=== PATIENT | male | born 1960 | race Caucasian/White ===

== ENCOUNTER 2018-02-20 08:20 | Inpatient (IN) | payer BC ==
[~2018-02-20] VITALS: Ht 162.6 cm; Wt 97.1 kg
[2018-02-20] MEDS ORDERED: LISI-170 PO (08:50)
[2018-02-20] MEDS ORDERED: SODIUM CHLORIDE FLUSH 10ML SYR IVF ONE (09:00)
[2018-02-20 09:16] LABS: ALBUMIN 3.6 g/dL (3.4-5.0); ANION GAP 8 mmol/L (5-15); CALCIUM 8.5 mg/dL (8.5-10.1); CHLORIDE 100 mmol/L (98-107)
[2018-02-20 09:19] LABS: ALANINE AMINOTRANSFERASE 22 U/L (12-78); ALKALINE PHOSPHATASE 83 U/L (45-117); BILIRUBIN,TOTAL 0.7 mg/dL (0.2-1.0); CREATINE KINASE, TOTAL 272 U/L (39-308); CREATININE 0.89 mg/dL (0.7-1.3); TOTAL PROTEIN 7.4 g/dL (6.4-8.2)
[2018-02-20 09:20] LABS: INTERNATIONAL NORMALIZED RATIO 0.97 (0.93-1.1); PROTHROMBIN TIME 10.1 Seconds (9.6-11.5)
[2018-02-20 09:58] LABS: BASOPHILS # (AUTO) 0.25 x10^3/uL (0-0.1); BASOPHILS % (AUTO) 2 % (0-1); EOSINOPHILS # (AUTO) 0.24 x10^3/uL (0-0.4); EOSINOPHILS % (AUTO) 2 % (1-7); LYMPHOCYTES # (AUTO) 1.81 x10^3/uL (1-3.4); LYMPHOCYTES % (AUTO) 12 % (22-44); MD NO; MEAN CORPUSCULAR HEMOGLOBIN 33.1 pg (27.5-34.5); MEAN CORPUSCULAR HGB CONC 35.4 g/dL (33.2-36.2); MEAN CORPUSCULAR VOLUME 93.4 fL (81-97); MEAN PLATELET VOLUME 8.1 fL (7.4-10.4); MONOCYTES % (AUTO) 6 % (2-9); NEUTROPHILS # (AUTO) 12.22 x10^3/uL (1.8-6.8); NEUTROPHILS % (AUTO) 79 % (42-75); PLATELET COUNT 232 x10^3/uL (130-400); RED BLOOD COUNT 4.93 x10^6/uL (4.38-5.82); RED CELL DISTRIBUTION WIDTH 12.8 % (9.4-14.8)
[2018-02-20 10:41] LABS: MICROSCOPIC NOT IND
[2018-02-20 10:47] LABS: CULTURE INDICATED? NO
[2018-02-20] MEDS ORDERED: ONDANSETRON 2MG/ML, 2ML IVPush PRN (11:30)
[2018-02-20] MEDS ORDERED: GADOBUTROL 15 MMOL/15 ML PFS ONE (12:10)
[2018-02-20 13:18] VITALS: BP 147/89
[2018-02-20] MEDS: INSULIN LISPRO 100 UNITS/ML, PEN SQ-INSULIN SCH ×3 (14:55→20:25)
[2018-02-20] MEDS: HEPARIN 5,000 UNITS/ML, 1ML SQ SCH ×2 (16:25→23:43)
[2018-02-20 20:00] VITALS: BP 154/89
[2018-02-21 02:00] VITALS: BP 161/96
[2018-02-21 05:22] LABS: BASOPHILS # (AUTO) 0.05 x10^3/uL (0-0.1); BASOPHILS % (AUTO) 0 % (0-1); EOSINOPHILS # (AUTO) 0.36 x10^3/uL (0-0.4); EOSINOPHILS % (AUTO) 2 % (1-7); LYMPHOCYTES # (AUTO) 2.19 x10^3/uL (1-3.4); LYMPHOCYTES % (AUTO) 14 % (22-44); MD NO; MEAN CORPUSCULAR HEMOGLOBIN 33.1 pg (27.5-34.5); MEAN CORPUSCULAR HGB CONC 35.8 g/dL (33.2-36.2); MEAN CORPUSCULAR VOLUME 92.4 fL (81-97); MEAN PLATELET VOLUME 8.9 fL (7.4-10.4); MONOCYTES # (AUTO) 0.99 x10^3/uL (0.2-0.8); MONOCYTES % (AUTO) 6 % (2-9); NEUTROPHILS # (AUTO) 12.14 x10^3/uL (1.8-6.8); NEUTROPHILS % (AUTO) 77 % (42-75); PLATELET COUNT 231 x10^3/uL (130-400); RED BLOOD COUNT 4.81 x10^6/uL (4.38-5.82); RED CELL DISTRIBUTION WIDTH 13.2 % (9.4-14.8)
[2018-02-21 05:28] LABS: ANION GAP 9 mmol/L (5-15); CALCIUM 8.3 mg/dL (8.5-10.1); CHLORIDE 101 mmol/L (98-107)
[2018-02-21 05:41] LABS: THYROID STIMULATING HORMONE 0.613 mIU/L (0.358-3.740)
[2018-02-21 07:35] VITALS: BP 167/104
[2018-02-21] MEDS: HEPARIN 5,000 UNITS/ML, 1ML SQ SCH (08:31)
[2018-02-21] MEDS: LABETALOL 5MG/ML, 20ML IVPush PRN ×2 (08:31→19:51)
[2018-02-21] MEDS: INSULIN LISPRO 100 UNITS/ML, PEN SQ-INSULIN SCH ×4 (08:37→21:33)
[2018-02-21 10:21] LABS: CHOL/HDL RATIO 6.5
[2018-02-21] MEDS ORDERED: GADOBUTROL 10 MMOL/10 ML PFS ONE (12:27)
[2018-02-21 13:08] VITALS: BP 122/83
[2018-02-21] MEDS ORDERED: LIDOCAINE-MPF 1%, 2ML ONE ×3 (16:02→16:03)
[2018-02-21 17:56] LABS: GLUCOSE, CSF 97 mg/dL (40-80); TOTAL PROTEIN,CSF 81 mg/dL (15-45)
[2018-02-21] MEDS: SODIUM CHLORIDE 0.9% 1,000 ML IV SCH (18:30)
[2018-02-21] MEDS: IMMUNE GLOB (GAMUNEX) 10GM/100ML IV SCH (18:34)
[2018-02-21] MEDS: LISINOPRIL 20 MG TABLET PO SCH (21:48)
[2018-02-22] MEDS ORDERED: ALBUTEROL SULFATE 2.5 MG/3 ML ONE (03:33)
[2018-02-22 04:14] VITALS: BP 151/80
[2018-02-22] MEDS: SODIUM CHLORIDE 0.9% 1,000 ML IV SCH ×2 (05:52→20:31)
[2018-02-22 07:02] LABS: BASOPHILS # (AUTO) 0.01 x10^3/uL (0-0.1); BASOPHILS % (AUTO) 0 % (0-1); EOSINOPHILS % (AUTO) 0 % (1-7); LYMPHOCYTES # (AUTO) 0.91 x10^3/uL (1-3.4); LYMPHOCYTES % (AUTO) 6 % (22-44); MD NO; MEAN CORPUSCULAR HEMOGLOBIN 31.9 pg (27.5-34.5); MEAN CORPUSCULAR HGB CONC 34.5 g/dL (33.2-36.2); MEAN CORPUSCULAR VOLUME 92.4 fL (81-97); MEAN PLATELET VOLUME 9.2 fL (7.4-10.4); MONOCYTES # (AUTO) 0.17 x10^3/uL (0.2-0.8); MONOCYTES % (AUTO) 1 % (2-9); NEUTROPHILS # (AUTO) 14.95 x10^3/uL (1.8-6.8); NEUTROPHILS % (AUTO) 93 % (42-75); PLATELET COUNT 209 x10^3/uL (130-400)
[2018-02-22 07:24] LABS: ANION GAP 10 mmol/L (5-15); CALCIUM 8.7 mg/dL (8.5-10.1); CHLORIDE 103 mmol/L (98-107); CREATININE 0.74 mg/dL (0.7-1.3)
[2018-02-22] MEDS: INSULIN LISPRO 100 UNITS/ML, PEN SQ-INSULIN SCH ×4 (08:13→23:51)
[2018-02-22] MEDS: LISINOPRIL 20 MG TABLET PO SCH (08:13)
[2018-02-22] MEDS: ENALAPRILAT 1.25 MG/ML, 2ML IVPush PRN (09:43)
[2018-02-22] MEDS ORDERED: LISINOPRIL 20 MG TABLET PO ONE (10:30)
[2018-02-22] MEDS ORDERED: hydrOXyzine 10 MG/5 ML ORAL SOL PO PRN (10:30)
[2018-02-22] MEDS ORDERED: LISINOPRIL 20 MG TABLET ONE (10:32)
[2018-02-22] MEDS ORDERED: INSULIN GLARGINE 100 UNITS/ML, PEN ONE (10:33)
[2018-02-22] MEDS: INSULIN GLARGINE 100 UNITS/ML, PEN SQ-INSULIN SCH (10:35)
[2018-02-22] MEDS ORDERED: ROCURONIUM 10 MG/ML,10ML ONE (12:00)
[2018-02-22] MEDS ORDERED: PROPOFOL 10 MG/ML, 100ML IV ONE (12:00)
[2018-02-22] MEDS ORDERED: MIDAZOLAM 1 MG/ML, 5ML ONE (12:00)
[2018-02-22] MEDS ORDERED: SUCCINYLCHOLINE 20 MG/ML, 10ML ONE (12:00)
[2018-02-22] MEDS ORDERED: ETOMIDATE 40 MG/20 ML ONE (12:00)
[2018-02-22] MEDS ORDERED: PHARMACY MAY ADJ FOR RENAL FX MC SCH (12:30)
[2018-02-22] MEDS ORDERED: morphine SULFATE 10 MG/ML, 1ML ONE (12:33)
[2018-02-22] MEDS ORDERED: morphine SULFATE 10 MG/ML, 1ML IVPush ONE (13:00)
[2018-02-22] MEDS: FAMOTIDINE 20 MG/2 ML IV SCH ×2 (13:33→23:51)
[2018-02-22] MEDS: CYANOCOBALAMIN 1,000 MCG TABLET PO SCH (13:37)
[2018-02-22] MEDS: PROPOFOL 100 ML IV PRN ×3 (14:07→23:51)
[2018-02-22] MEDS: HYDROcodone/APAP 5/325 TABLET PO PRN ×2 (17:32→21:02)
[2018-02-22] MEDS: IMMUNE GLOB (GAMUNEX) 10GM/100ML IV SCH (18:41)
[2018-02-22 19:23] VITALS: BP 92/60
[2018-02-23] MEDS: HYDROcodone/APAP 5/325 TABLET PO PRN ×3 (03:20→22:16)
[2018-02-23 04:55] LABS: BASOPHILS # (AUTO) 0.04 x10^3/uL (0-0.1); BASOPHILS % (AUTO) 0 % (0-1); EOSINOPHILS # (AUTO) 0.02 x10^3/uL (0-0.4); EOSINOPHILS % (AUTO) 0 % (1-7); LYMPHOCYTES # (AUTO) 1.55 x10^3/uL (1-3.4); LYMPHOCYTES % (AUTO) 8 % (22-44); MD NO; MEAN CORPUSCULAR HEMOGLOBIN 32.8 pg (27.5-34.5); MEAN CORPUSCULAR HGB CONC 35.1 g/dL (33.2-36.2); MEAN CORPUSCULAR VOLUME 93.4 fL (81-97); MEAN PLATELET VOLUME 8.3 fL (7.4-10.4); MONOCYTES # (AUTO) 1.28 x10^3/uL (0.2-0.8); MONOCYTES % (AUTO) 6 % (2-9); NEUTROPHILS # (AUTO) 16.99 x10^3/uL (1.8-6.8); NEUTROPHILS % (AUTO) 86 % (42-75); PLATELET COUNT 211 x10^3/uL (130-400); RED BLOOD COUNT 4.21 x10^6/uL (4.38-5.82); RED CELL DISTRIBUTION WIDTH 13.6 % (9.4-14.8)
[2018-02-23] MEDS: SODIUM CHLORIDE 0.9% 1,000 ML IV SCH ×2 (05:05→17:39)
[2018-02-23 05:07] LABS: ALANINE AMINOTRANSFERASE 16 U/L (12-78); ALBUMIN 2.7 g/dL (3.4-5.0); ANION GAP 6 mmol/L (5-15); CHLORIDE 105 mmol/L (98-107); CREATININE 0.93 mg/dL (0.7-1.3)
[2018-02-23 05:09] LABS: ALKALINE PHOSPHATASE 53 U/L (45-117); BILIRUBIN,TOTAL 0.6 mg/dL (0.2-1.0); TOTAL PROTEIN 7.7 g/dL (6.4-8.2)
[2018-02-23] MEDS: INSULIN LISPRO 100 UNITS/ML, PEN SQ-INSULIN SCH ×3 (05:39→17:39)
[2018-02-23] MEDS ORDERED: LISINOPRIL 20 MG TABLET PO SCH (09:00)
[2018-02-23] MEDS: PROPOFOL 100 ML IV PRN ×2 (12:19→23:10)
[2018-02-23] MEDS ORDERED: FENTANYL PF 100 MCG/2ML ONE (12:21)
[2018-02-23] MEDS: FENTANYL PF 100 MCG/2ML IVPush PRN ×4 (12:23→22:16)
[2018-02-23] MEDS: INSULIN GLARGINE 100 UNITS/ML, PEN SQ-INSULIN SCH (12:27)
[2018-02-23] MEDS: FAMOTIDINE 20 MG/2 ML IV SCH (12:39)
[2018-02-23] MEDS: CYANOCOBALAMIN 1,000 MCG TABLET PO SCH (16:29)
[2018-02-23] MEDS: IMMUNE GLOB (GAMUNEX) 10GM/100ML IV SCH (17:30)
[2018-02-23] MEDS ORDERED: ACETAMINOPHEN 650 MG/20.3 ML UDC ONE (18:39)
[2018-02-23] MEDS: ACETAMINOPHEN 325 MG TABLET PO PRN (18:43)
[2018-02-23] MEDS: LIDODERM 5% PATCH TD SCH (18:43)
[2018-02-24] MEDS: FAMOTIDINE 20 MG/2 ML IV SCH ×2 (00:31→12:10)
[2018-02-24] MEDS: INSULIN LISPRO 100 UNITS/ML, PEN SQ-INSULIN SCH ×5 (00:33→22:55)
[2018-02-24] MEDS: HYDROcodone/APAP 5/325 TABLET PO PRN ×4 (03:08→19:17)
[2018-02-24] MEDS: LABETALOL 5MG/ML, 20ML IVPush PRN ×2 (03:08→16:17)
[2018-02-24] MEDS: FENTANYL PF 100 MCG/2ML IVPush PRN ×4 (03:08→23:30)
[2018-02-24 04:42] LABS: ALANINE AMINOTRANSFERASE 15 U/L (12-78); ALBUMIN 2.4 g/dL (3.4-5.0); ANION GAP 7 mmol/L (5-15); CALCIUM 7.7 mg/dL (8.5-10.1); CHLORIDE 104 mmol/L (98-107); CREATININE 0.96 mg/dL (0.7-1.3)
[2018-02-24 04:44] LABS: ALKALINE PHOSPHATASE 51 U/L (45-117); BILIRUBIN,TOTAL 0.7 mg/dL (0.2-1.0); TOTAL PROTEIN 7.7 g/dL (6.4-8.2)
[2018-02-24 04:57] LABS: MEAN CORPUSCULAR HEMOGLOBIN 32.1 pg (27.5-34.5); MEAN CORPUSCULAR HGB CONC 34.7 g/dL (33.2-36.2); MEAN CORPUSCULAR VOLUME 92.5 fL (81-97); MEAN PLATELET VOLUME 8.8 fL (7.4-10.4); PLATELET COUNT 197 x10^3/uL (130-400); RED BLOOD COUNT 3.91 x10^6/uL (4.38-5.82); RED CELL DISTRIBUTION WIDTH 13.4 % (9.4-14.8)
[2018-02-24 05:40] LABS: MD YES
[2018-02-24 05:45] LABS: BAND#(MANUAL) 1.18 x10^3/uL; BANDS%(MANUAL) 4 % (0-7); LYMPH#(MANUAL) 1.77 x10^3/uL (1-3.4); LYMPHS% (MANUAL) 6 % (22-44); MONOS#(MANUAL) 1.18 x10^3/uL (0.3-2.7); MONOS% (MANUAL) 4 % (2-9); SEG#(MANUAL) 25.37 x10^3/uL (1.8-6.8); SEGS% (MANUAL) 86 % (42-75)
[2018-02-24 05:46] LABS: <RBC MORPHOLOGY> NORMAL
[2018-02-24 05:47] LABS: <PLATELET ESTIMATE> ADEQUATE; <PLT MORPHOLOGY> NORMAL PLT MORPH
[2018-02-24] MEDS: SODIUM CHLORIDE 0.9% 1,000 ML IV SCH ×2 (06:17→19:27)
[2018-02-24] MEDS: LISINOPRIL 20 MG TABLET PO SCH (07:54)
[2018-02-24] MEDS: ACETAMINOPHEN 325 MG TABLET PO PRN ×2 (07:54→17:57)
[2018-02-24] MEDS ORDERED: VANCOMYCIN PER PHARMACY MC PRN (08:00)
[2018-02-24] MEDS: PIPERACILLIN/TAZO/PMX 3.375GM 50 ML IV SCH ×3 (08:23→19:33)
[2018-02-24] MEDS ORDERED: PHARMACOKINETIC CONSULTATION MC ONE (08:30)
[2018-02-24] MEDS ORDERED: PHARMACOKINETIC MONITORING MC PRN (08:30)
[2018-02-24] MEDS: VANCOMYCIN 2,000 MG in SODIUM CHLORIDE 0.9% 500 ML IV SCH (09:12)
[2018-02-24] MEDS: PROPOFOL 100 ML IV PRN ×2 (09:18→17:16)
[2018-02-24 09:33] LABS: CULTURE INDICATED? YES; MICROSCOPIC INDICATED
[2018-02-24] MEDS: INSULIN GLARGINE 100 UNITS/ML, PEN SQ-INSULIN SCH (12:09)
[2018-02-24] MEDS: CYANOCOBALAMIN 1,000 MCG TABLET PO SCH (12:10)
[2018-02-24] MEDS: LIDODERM 5% PATCH TD SCH (13:40)
[2018-02-24] MEDS: IMMUNE GLOB (GAMUNEX) 10GM/100ML IV SCH (17:09)
[2018-02-24] MEDS: ENALAPRILAT 1.25 MG/ML, 2ML IVPush PRN (18:42)
[2018-02-24] MEDS: ALBUTEROL SULFATE 2.5 MG/3 ML NPPB SCH (22:44)
[2018-02-25] MEDS: PROPOFOL 100 ML IV PRN ×3 (00:37→20:07)
[2018-02-25] MEDS: FAMOTIDINE 20 MG/2 ML IV SCH (00:37)
[2018-02-25] MEDS: PIPERACILLIN/TAZO/PMX 3.375GM 50 ML IV SCH ×4 (01:30→19:48)
[2018-02-25] MEDS: VANCOMYCIN 2,000 MG in SODIUM CHLORIDE 0.9% 500 ML IV SCH ×2 (02:11→20:29)
[2018-02-25] MEDS: ALBUTEROL SULFATE 2.5 MG/3 ML NPPB SCH ×6 (03:00→22:20)
[2018-02-25] MEDS: HYDROcodone/APAP 5/325 TABLET PO PRN ×2 (03:54→08:06)
[2018-02-25 04:00] VITALS: BP 146/75
[2018-02-25] MEDS: INSULIN LISPRO 100 UNITS/ML, PEN SQ-INSULIN SCH ×4 (05:18→23:30)
[2018-02-25 05:43] LABS: CHLORIDE 103 mmol/L (98-107)
[2018-02-25 05:56] LABS: ANION GAP 7 mmol/L (5-15); CALCIUM 7.8 mg/dL (8.5-10.1)
[2018-02-25 06:03] LABS: MEAN CORPUSCULAR HGB CONC 35.2 g/dL (33.2-36.2); MEAN CORPUSCULAR VOLUME 93.7 fL (81-97); MEAN PLATELET VOLUME 8.6 fL (7.4-10.4); PLATELET COUNT 133 x10^3/uL (130-400); RED BLOOD COUNT 3.37 x10^6/uL (4.38-5.82); RED CELL DISTRIBUTION WIDTH 13.2 % (9.4-14.8)
[2018-02-25 06:18] LABS: MD YES
[2018-02-25 06:20] LABS: <PLATELET ESTIMATE> ADEQUATE; <PLT MORPHOLOGY> NORMAL PLT MORPH; BAND#(MANUAL) 0.68 x10^3/uL; BANDS%(MANUAL) 3 % (0-7); EOS#(MANUAL) 0.23 x10^3/uL (0.0-0.4); EOS% (MANUAL) 1 % (1-7); LYMPH#(MANUAL) 1.35 x10^3/uL (1-3.4); LYMPHS% (MANUAL) 6 % (22-44); METAMYELOCYTES# (MANUAL) 0.23 x10^3/uL (0-0); METAMYELOCYTES% (MANUAL) 1 % (0-1); MONOS#(MANUAL) 2.03 x10^3/uL (0.3-2.7); MONOS% (MANUAL) 9 % (2-9); POLYCHROMASIA 1+; SEGS% (MANUAL) 80 % (42-75)
[2018-02-25] MEDS: LISINOPRIL 20 MG TABLET PO SCH (08:06)
[2018-02-25] MEDS: SODIUM CHLORIDE 0.9% 1,000 ML IV SCH ×2 (09:00→12:55)
[2018-02-25] MEDS: ENOXAPARIN 40 MG/0.4 ML SQ SCH (09:29)
[2018-02-25] MEDS ORDERED: INSULIN GLARGINE 100 UNITS/ML, PEN SQ-INSULIN SCH (10:30)
[2018-02-25] MEDS: CYANOCOBALAMIN 1,000 MCG TABLET PO SCH (13:07)
[2018-02-25] MEDS: ACETAMINOPHEN 325 MG TABLET PO PRN ×2 (14:07→20:24)
[2018-02-25] MEDS: IMMUNE GLOB (GAMUNEX) 10GM/100ML IV SCH (18:40)
[2018-02-25] MEDS: FAMOTIDINE 20 MG TABLET PO SCH (20:52)
[2018-02-25] MEDS: FENTANYL PF 100 MCG/2ML IVPush PRN (21:08)
[2018-02-26] MEDS: HYDROcodone/APAP 5/325 TABLET PO PRN ×3 (01:35→20:10)
[2018-02-26] MEDS: PIPERACILLIN/TAZO/PMX 3.375GM 50 ML IV SCH ×2 (02:02→08:00)
[2018-02-26] MEDS: PROPOFOL 100 ML IV PRN ×4 (02:48→18:54)
[2018-02-26] MEDS: ALBUTEROL SULFATE 2.5 MG/3 ML NPPB SCH ×6 (03:00→22:43)
[2018-02-26 04:05] VITALS: BP 138/82
[2018-02-26 04:29] LABS: MEAN CORPUSCULAR HEMOGLOBIN 33.1 pg (27.5-34.5); MEAN CORPUSCULAR HGB CONC 35.3 g/dL (33.2-36.2); MEAN CORPUSCULAR VOLUME 93.8 fL (81-97); MEAN PLATELET VOLUME 8.9 fL (7.4-10.4); PLATELET COUNT 169 x10^3/uL (130-400); RED BLOOD COUNT 3.23 x10^6/uL (4.38-5.82); RED CELL DISTRIBUTION WIDTH 13.2 % (9.4-14.8)
[2018-02-26 04:32] LABS: ANION GAP 4 mmol/L (5-15); CALCIUM 7.9 mg/dL (8.5-10.1); CHLORIDE 101 mmol/L (98-107); CREATININE 0.79 mg/dL (0.7-1.3)
[2018-02-26 04:51] LABS: MD YES
[2018-02-26 04:53] LABS: <PLATELET ESTIMATE> ADEQUATE; <PLT MORPHOLOGY> NORMAL PLT MORPH; <RBC MORPHOLOGY> NORMAL; BAND#(MANUAL) 0.37 x10^3/uL; BANDS%(MANUAL) 2 % (0-7); LYMPH#(MANUAL) 2.62 x10^3/uL (1-3.4); LYMPHS% (MANUAL) 14 % (22-44); MONOS#(MANUAL) 0.94 x10^3/uL (0.3-2.7); MONOS% (MANUAL) 5 % (2-9); MYELOCYTES# (MANUAL) 0.19 x10^3/uL (0-0); MYELOCYTES% (MANUAL) 1 % (0-0); SEG#(MANUAL) 14.59 x10^3/uL (1.8-6.8); SEGS% (MANUAL) 78 % (42-75)
[2018-02-26] MEDS: INSULIN LISPRO 100 UNITS/ML, PEN SQ-INSULIN SCH ×4 (05:08→22:58)
[2018-02-26] MEDS ORDERED: INSULIN LISPRO 100 UNITS/ML, PEN SQ-INSULIN SCH (07:30)
[2018-02-26] MEDS: CEFTRIAXONE 2 GM in SODIUM CHLORIDE 0.9% 50 ML IVPB SCH (09:15)
[2018-02-26] MEDS: ENOXAPARIN 40 MG/0.4 ML SQ SCH (09:15)
[2018-02-26] MEDS: FAMOTIDINE 20 MG TABLET PO SCH ×2 (09:15→20:10)
[2018-02-26] MEDS: LISINOPRIL 20 MG TABLET PO SCH (09:15)
[2018-02-26] MEDS: LIDODERM 5% PATCH TD SCH (09:17)
[2018-02-26] MEDS ORDERED: IMMUNE GLOB (GAMUNEX) 10GM/100ML IV SCH (10:30)
[2018-02-26] MEDS ORDERED: INSULIN GLARGINE 100 UNITS/ML, PEN SQ-INSULIN SCH (10:30)
[2018-02-26] MEDS: CYANOCOBALAMIN 1,000 MCG TABLET PO SCH (11:45)
[2018-02-26] MEDS: VANCOMYCIN 2,000 MG in SODIUM CHLORIDE 0.9% 500 ML IV SCH (14:57)
[2018-02-26] MEDS: SODIUM CHLORIDE 0.9% 1,000 ML IV SCH (16:06)
[2018-02-26] MEDS: IMMUNE GLOB (GAMUNEX) 10GM/100ML IV SCH (18:21)
[2018-02-27] MEDS: PROPOFOL 100 ML IV PRN ×5 (00:15→23:43)
[2018-02-27] MEDS: ALBUTEROL SULFATE 2.5 MG/3 ML NPPB SCH ×6 (03:00→21:58)
[2018-02-27] MEDS: VANCOMYCIN 2,000 MG in SODIUM CHLORIDE 0.9% 500 ML IV SCH ×2 (03:09→14:49)
[2018-02-27 04:13] VITALS: BP 121/73
[2018-02-27 04:24] LABS: BASOPHILS # (AUTO) 0.03 x10^3/uL (0-0.1); BASOPHILS % (AUTO) 0 % (0-1); EOSINOPHILS % (AUTO) 5 % (1-7); LYMPHOCYTES # (AUTO) 1.73 x10^3/uL (1-3.4); LYMPHOCYTES % (AUTO) 12 % (22-44); MD NO; MEAN CORPUSCULAR HEMOGLOBIN 32.1 pg (27.5-34.5); MEAN CORPUSCULAR HGB CONC 34.9 g/dL (33.2-36.2); MEAN CORPUSCULAR VOLUME 91.8 fL (81-97); MEAN PLATELET VOLUME 8.5 fL (7.4-10.4); MONOCYTES # (AUTO) 1.39 x10^3/uL (0.2-0.8); MONOCYTES % (AUTO) 10 % (2-9); NEUTROPHILS # (AUTO) 10.12 x10^3/uL (1.8-6.8); NEUTROPHILS % (AUTO) 72 % (42-75); PLATELET COUNT 222 x10^3/uL (130-400); RED BLOOD COUNT 3.22 x10^6/uL (4.38-5.82); RED CELL DISTRIBUTION WIDTH 13.7 % (9.4-14.8)
[2018-02-27 04:30] LABS: ANION GAP 6 mmol/L (5-15); CALCIUM 7.6 mg/dL (8.5-10.1); CHLORIDE 99 mmol/L (98-107); CREATININE 0.74 mg/dL (0.7-1.3)
[2018-02-27] MEDS: INSULIN LISPRO 100 UNITS/ML, PEN SQ-INSULIN SCH ×4 (05:02→23:04)
[2018-02-27] MEDS: HYDROcodone/APAP 5/325 TABLET PO PRN (06:36)
[2018-02-27] MEDS: ENOXAPARIN 40 MG/0.4 ML SQ SCH (08:47)
[2018-02-27] MEDS: LIDODERM 5% PATCH TD SCH (08:48)
[2018-02-27] MEDS: CEFTRIAXONE 2 GM in SODIUM CHLORIDE 0.9% 50 ML IVPB SCH (08:48)
[2018-02-27] MEDS: FAMOTIDINE 20 MG TABLET PO SCH ×2 (08:48→20:39)
[2018-02-27] MEDS: LISINOPRIL 20 MG TABLET PO SCH (08:48)
[2018-02-27] MEDS ORDERED: INSULIN GLARGINE 100 UNITS/ML, PEN SQ-INSULIN SCH (10:30)
[2018-02-27] MEDS: CYANOCOBALAMIN 1,000 MCG TABLET PO SCH (12:08)
[2018-02-27] MEDS: SODIUM CHLORIDE 0.9% 1,000 ML IV SCH (12:09)
[2018-02-27] MEDS: IMMUNE GLOB (GAMUNEX) 10GM/100ML IV SCH (19:35)
[2018-02-27] MEDS: ACETAMINOPHEN 325 MG TABLET PO PRN (22:59)
[2018-02-28] MEDS: ALBUTEROL SULFATE 2.5 MG/3 ML NPPB SCH ×6 (02:12→22:29)
[2018-02-28] MEDS: VANCOMYCIN 2,000 MG in SODIUM CHLORIDE 0.9% 500 ML IV SCH ×2 (02:54→14:50)
[2018-02-28] MEDS: HYDROcodone/APAP 5/325 TABLET PO PRN ×2 (03:57→21:19)
[2018-02-28] MEDS: LACTULOSE 20 GM/30 ML UDC PO PRN (03:57)
[2018-02-28 04:12] VITALS: BP 143/78
[2018-02-28] MEDS: PROPOFOL 100 ML IV PRN ×4 (04:38→20:07)
[2018-02-28 04:47] LABS: MEAN CORPUSCULAR HEMOGLOBIN 33.2 pg (27.5-34.5); MEAN CORPUSCULAR HGB CONC 35.7 g/dL (33.2-36.2); MEAN CORPUSCULAR VOLUME 93.1 fL (81-97); MEAN PLATELET VOLUME 8.3 fL (7.4-10.4); PLATELET COUNT 209 x10^3/uL (130-400); RED BLOOD COUNT 3.17 x10^6/uL (4.38-5.82); RED CELL DISTRIBUTION WIDTH 13.6 % (9.4-14.8)
[2018-02-28 04:48] LABS: CHLORIDE 101 mmol/L (98-107)
[2018-02-28 04:54] LABS: ANION GAP 7 mmol/L (5-15); CALCIUM 7.7 mg/dL (8.5-10.1); CREATININE 0.77 mg/dL (0.7-1.3); TRIGLYCERIDES 130 mg/dL (50-200)
[2018-02-28 05:09] LABS: BASOPHILS # (AUTO) 0.01 x10^3/uL (0-0.1); BASOPHILS % (AUTO) 0 % (0-1); EOSINOPHILS # (AUTO) 0.82 x10^3/uL (0-0.4); EOSINOPHILS % (AUTO) 6 % (1-7); LYMPHOCYTES # (AUTO) 1.22 x10^3/uL (1-3.4); LYMPHOCYTES % (AUTO) 9 % (22-44); MD SCAN; MONOCYTES # (AUTO) 1.57 x10^3/uL (0.2-0.8); MONOCYTES % (AUTO) 11 % (2-9); NEUTROPHILS # (AUTO) 10.13 x10^3/uL (1.8-6.8); NEUTROPHILS % (AUTO) 74 % (42-75)
[2018-02-28] MEDS: INSULIN LISPRO 100 UNITS/ML, PEN SQ-INSULIN SCH ×4 (05:19→23:10)
[2018-02-28] MEDS: SODIUM CHLORIDE 0.9% 1,000 ML IV SCH (05:22)
[2018-02-28] MEDS ORDERED: VANCOMYCIN PER PHARMACY MC PRN (08:30)
[2018-02-28] MEDS: FAMOTIDINE 20 MG TABLET PO SCH ×2 (08:42→21:12)
[2018-02-28] MEDS: LISINOPRIL 20 MG TABLET PO SCH (08:42)
[2018-02-28] MEDS: ENOXAPARIN 40 MG/0.4 ML SQ SCH (08:43)
[2018-02-28] MEDS: CEFTRIAXONE 2 GM in SODIUM CHLORIDE 0.9% 50 ML IVPB SCH (08:43)
[2018-02-28] MEDS: LIDODERM 5% PATCH TD SCH (08:45)
[2018-02-28] MEDS ORDERED: INSULIN GLARGINE 100 UNITS/ML, PEN SQ-INSULIN SCH (10:30)
[2018-02-28] MEDS: CYANOCOBALAMIN 1,000 MCG TABLET PO SCH (13:00)
[2018-02-28] MEDS: ACETAMINOPHEN 325 MG TABLET PO PRN (18:43)
[2018-02-28] MEDS: IMMUNE GLOB (GAMUNEX) 10GM/100ML IV SCH (18:43)
[2018-03-01] MEDS: PROPOFOL 100 ML IV PRN ×6 (00:16→22:25)
[2018-03-01] MEDS: ALBUTEROL SULFATE 2.5 MG/3 ML NPPB SCH ×6 (02:59→22:56)
[2018-03-01] MEDS: SODIUM CHLORIDE 0.9% 1,000 ML IV SCH (03:04)
[2018-03-01] MEDS: VANCOMYCIN 2,000 MG in SODIUM CHLORIDE 0.9% 500 ML IV SCH ×2 (03:04→15:23)
[2018-03-01 04:30] VITALS: BP 162/87
[2018-03-01 04:39] LABS: MEAN CORPUSCULAR HEMOGLOBIN 33.1 pg (27.5-34.5); MEAN CORPUSCULAR HGB CONC 35.7 g/dL (33.2-36.2); MEAN CORPUSCULAR VOLUME 92.7 fL (81-97); MEAN PLATELET VOLUME 8.6 fL (7.4-10.4); PLATELET COUNT 252 x10^3/uL (130-400); RED BLOOD COUNT 3.23 x10^6/uL (4.38-5.82); RED CELL DISTRIBUTION WIDTH 13.7 % (9.4-14.8)
[2018-03-01 04:50] LABS: ANION GAP 7 mmol/L (5-15); CHLORIDE 99 mmol/L (98-107)
[2018-03-01 04:51] LABS: CREATININE 0.74 mg/dL (0.7-1.3)
[2018-03-01] MEDS: INSULIN LISPRO 100 UNITS/ML, PEN SQ-INSULIN SCH ×4 (04:58→22:25)
[2018-03-01] MEDS: ENALAPRILAT 1.25 MG/ML, 2ML IVPush PRN (05:08)
[2018-03-01 05:17] LABS: MD YES
[2018-03-01 05:18] LABS: BAND#(MANUAL) 0.94 x10^3/uL; BANDS%(MANUAL) 6 % (0-7); EOS#(MANUAL) 0.47 x10^3/uL (0.0-0.4); EOS% (MANUAL) 3 % (1-7); LYMPH#(MANUAL) 1.87 x10^3/uL (1-3.4); LYMPHS% (MANUAL) 12 % (22-44); METAMYELOCYTES# (MANUAL) 0.47 x10^3/uL (0-0); METAMYELOCYTES% (MANUAL) 3 % (0-1); MONOS#(MANUAL) 0.78 x10^3/uL (0.3-2.7); MONOS% (MANUAL) 5 % (2-9); MYELOCYTES# (MANUAL) 0.31 x10^3/uL (0-0); MYELOCYTES% (MANUAL) 2 % (0-0); SEG#(MANUAL) 10.76 x10^3/uL (1.8-6.8); SEGS% (MANUAL) 69 % (42-75)
[2018-03-01 05:19] LABS: <PLATELET ESTIMATE> ADEQUATE; <PLT MORPHOLOGY> NORMAL PLT MORPH; ANISOCYTOSIS 1+; POLYCHROMASIA 1+
[2018-03-01] MEDS: LISINOPRIL 20 MG TABLET PO SCH (08:09)
[2018-03-01] MEDS: LIDODERM 5% PATCH TD SCH (08:09)
[2018-03-01] MEDS: ENOXAPARIN 40 MG/0.4 ML SQ SCH (08:09)
[2018-03-01] MEDS: FAMOTIDINE 20 MG TABLET PO SCH ×2 (08:09→20:16)
[2018-03-01] MEDS: CEFTRIAXONE 2 GM in SODIUM CHLORIDE 0.9% 50 ML IVPB SCH (08:09)
[2018-03-01] MEDS: HYDROcodone/APAP 5/325 TABLET PO PRN ×2 (08:10→20:16)
[2018-03-01] MEDS ORDERED: INSULIN GLARGINE 100 UNITS/ML, PEN SQ-INSULIN SCH (10:30)
[2018-03-01] MEDS: LACTULOSE 20 GM/30 ML UDC PO PRN (17:59)
[2018-03-01] MEDS: CYANOCOBALAMIN 1,000 MCG TABLET PO SCH (20:10)
[2018-03-02] MEDS: PROPOFOL 100 ML IV PRN ×7 (01:29→23:43)
[2018-03-02 02:40] LABS: MEAN CORPUSCULAR HEMOGLOBIN 33.4 pg (27.5-34.5); MEAN CORPUSCULAR VOLUME 92.8 fL (81-97); MEAN PLATELET VOLUME 8.3 fL (7.4-10.4); PLATELET COUNT 279 x10^3/uL (130-400); RED BLOOD COUNT 3.42 x10^6/uL (4.38-5.82); RED CELL DISTRIBUTION WIDTH 13.8 % (9.4-14.8)
[2018-03-02 02:49] LABS: ANION GAP 7 mmol/L (5-15); CALCIUM 7.9 mg/dL (8.5-10.1); CHLORIDE 99 mmol/L (98-107)
[2018-03-02 03:21] LABS: MD YES
[2018-03-02] MEDS: VANCOMYCIN 2,000 MG in SODIUM CHLORIDE 0.9% 500 ML IV SCH ×2 (03:22→15:25)
[2018-03-02] MEDS: ALBUTEROL SULFATE 2.5 MG/3 ML NPPB SCH ×6 (03:25→22:30)
[2018-03-02 03:33] LABS: BAND#(MANUAL) 0.81 x10^3/uL; BANDS%(MANUAL) 5 % (0-7); EOS#(MANUAL) 0.81 x10^3/uL (0.0-0.4); EOS% (MANUAL) 5 % (1-7); LYMPH#(MANUAL) 1.46 x10^3/uL (1-3.4); LYMPHS% (MANUAL) 9 % (22-44); METAMYELOCYTES# (MANUAL) 0.65 x10^3/uL (0-0); METAMYELOCYTES% (MANUAL) 4 % (0-1); MONOS#(MANUAL) 0.16 x10^3/uL (0.3-2.7); MONOS% (MANUAL) 1 % (2-9); MYELOCYTES# (MANUAL) 0.16 x10^3/uL (0-0); MYELOCYTES% (MANUAL) 1 % (0-0); REACTIVE LYMPHS # (MANUAL) 0.16 x10^3/uL (0-0); REACTIVE LYMPHS % (MANUAL) 1 % (0-0); SEG#(MANUAL) 11.99 x10^3/uL (1.8-6.8); SEGS% (MANUAL) 74 % (42-75)
[2018-03-02 03:34] LABS: <PLATELET ESTIMATE> ADEQUATE; ANISOCYTOSIS 1+; POLYCHROMASIA 1+
[2018-03-02 03:35] LABS: LARGE PLATELETS 1+
[2018-03-02] MEDS: INSULIN LISPRO 100 UNITS/ML, PEN SQ-INSULIN SCH ×4 (04:29→23:03)
[2018-03-02 04:30] VITALS: BP 174/90
[2018-03-02] MEDS: LACTULOSE 20 GM/30 ML UDC PO PRN (04:42)
[2018-03-02] MEDS: ENALAPRILAT 1.25 MG/ML, 2ML IVPush PRN (04:42)
[2018-03-02] MEDS: HYDROcodone/APAP 5/325 TABLET PO PRN (04:42)
[2018-03-02] MEDS ORDERED: DOCUSATE 100 MG CAPSULE PO SCH (09:00)
[2018-03-02] MEDS: LIDODERM 5% PATCH TD SCH (09:00)
[2018-03-02] MEDS: ENOXAPARIN 40 MG/0.4 ML SQ SCH (09:20)
[2018-03-02] MEDS: FAMOTIDINE 20 MG TABLET PO SCH ×2 (09:20→20:42)
[2018-03-02] MEDS: CYANOCOBALAMIN 1,000 MCG TABLET PO SCH (09:21)
[2018-03-02] MEDS: LISINOPRIL 20 MG TABLET PO SCH (09:21)
[2018-03-02] MEDS: CEFTRIAXONE 2 GM in SODIUM CHLORIDE 0.9% 50 ML IVPB SCH (09:27)
[2018-03-02] MEDS: INSULIN GLARGINE 100 UNITS/ML, PEN SQ-INSULIN SCH (10:37)
[2018-03-02] MEDS ORDERED: DOCUSATE 50 MG/5 ML, 10ML UDC PO PRN (20:30)
[2018-03-02] MEDS: DOCUSATE 50 MG/5 ML, 10ML UDC PO SCH (21:00)
[2018-03-02] MEDS ORDERED: CEFTRIAXONE 2 GM in SODIUM CHLORIDE 0.9% 100 ML IVPB SCH (21:30)
[2018-03-03] MEDS: PROPOFOL 100 ML IV PRN ×7 (02:37→23:30)
[2018-03-03] MEDS: ALBUTEROL SULFATE 2.5 MG/3 ML NPPB SCH ×6 (02:40→22:52)
[2018-03-03] MEDS: VANCOMYCIN 2,000 MG in SODIUM CHLORIDE 0.9% 500 ML IV SCH ×2 (03:10→15:11)
[2018-03-03 04:00] VITALS: BP 148/76
[2018-03-03 04:27] LABS: BASOPHILS # (AUTO) 0.05 x10^3/uL (0-0.1); BASOPHILS % (AUTO) 0 % (0-1); EOSINOPHILS # (AUTO) 0.64 x10^3/uL (0-0.4); EOSINOPHILS % (AUTO) 4 % (1-7); LYMPHOCYTES # (AUTO) 1.72 x10^3/uL (1-3.4); LYMPHOCYTES % (AUTO) 10 % (22-44); MD NO; MEAN CORPUSCULAR HEMOGLOBIN 33.1 pg (27.5-34.5); MEAN CORPUSCULAR HGB CONC 35.7 g/dL (33.2-36.2); MEAN CORPUSCULAR VOLUME 92.7 fL (81-97); MEAN PLATELET VOLUME 8.3 fL (7.4-10.4); MONOCYTES # (AUTO) 1.25 x10^3/uL (0.2-0.8); MONOCYTES % (AUTO) 7 % (2-9); NEUTROPHILS # (AUTO) 13.43 x10^3/uL (1.8-6.8); NEUTROPHILS % (AUTO) 79 % (42-75); PLATELET COUNT 286 x10^3/uL (130-400); RED CELL DISTRIBUTION WIDTH 13.9 % (9.4-14.8)
[2018-03-03 04:29] LABS: ANION GAP 7 mmol/L (5-15); CALCIUM 7.9 mg/dL (8.5-10.1); CHLORIDE 102 mmol/L (98-107)
[2018-03-03 04:30] LABS: CREATININE 0.71 mg/dL (0.7-1.3); TRIGLYCERIDES 114 mg/dL (50-200)
[2018-03-03] MEDS: INSULIN LISPRO 100 UNITS/ML, PEN SQ-INSULIN SCH ×4 (05:01→23:12)
[2018-03-03] MEDS ORDERED: CEFTRIAXONE 2 GM in SODIUM CHLORIDE 0.9% 50 ML IVPB SCH (09:00)
[2018-03-03] MEDS: LIDODERM 5% PATCH TD SCH (09:00)
[2018-03-03] MEDS: DOCUSATE 50 MG/5 ML, 10ML UDC PO SCH ×2 (10:00→20:28)
[2018-03-03] MEDS: LISINOPRIL 20 MG TABLET PO SCH (10:00)
[2018-03-03] MEDS: FAMOTIDINE 20 MG TABLET PO SCH ×2 (10:00→20:28)
[2018-03-03] MEDS: ENOXAPARIN 40 MG/0.4 ML SQ SCH (10:01)
[2018-03-03] MEDS: PIPERACILLIN/TAZO/PMX 4.5GM 100 ML IV SCH ×3 (10:09→20:29)
[2018-03-03] MEDS: INSULIN GLARGINE 100 UNITS/ML, PEN SQ-INSULIN SCH (10:12)
[2018-03-03] MEDS: HYDROcodone/APAP 5/325 TABLET PO PRN ×2 (11:07→19:27)
[2018-03-03] MEDS ORDERED: INSULIN GLARGINE 100 UNITS/ML, PEN SQ-INSULIN ONE (13:30)
[2018-03-03] MEDS: FUROSEMIDE 40 MG/4 ML IV SCH (16:50)
[2018-03-03] MEDS: POTASSIUM CHLORIDE 20 MEQ PACKET PO SCH (16:50)
[2018-03-03] MEDS: CYANOCOBALAMIN 1,000 MCG TABLET PO SCH (20:28)
[2018-03-04] MEDS: HYDROcodone/APAP 5/325 TABLET PO PRN ×3 (00:23→13:54)
[2018-03-04] MEDS: VANCOMYCIN 2,000 MG in SODIUM CHLORIDE 0.9% 500 ML IV SCH (03:05)
[2018-03-04] MEDS: ALBUTEROL SULFATE 2.5 MG/3 ML NPPB SCH ×6 (03:08→22:50)
[2018-03-04] MEDS: PROPOFOL 100 ML IV PRN ×4 (03:36→19:01)
[2018-03-04 04:00] VITALS: BP 131/75
[2018-03-04] MEDS: PIPERACILLIN/TAZO/PMX 4.5GM 100 ML IV SCH ×4 (04:05→23:19)
[2018-03-04 04:26] LABS: MEAN CORPUSCULAR HEMOGLOBIN 32.4 pg (27.5-34.5); MEAN CORPUSCULAR HGB CONC 34.9 g/dL (33.2-36.2); MEAN CORPUSCULAR VOLUME 92.9 fL (81-97); MEAN PLATELET VOLUME 8.1 fL (7.4-10.4); PLATELET COUNT 315 x10^3/uL (130-400); RED BLOOD COUNT 3.25 x10^6/uL (4.38-5.82)
[2018-03-04 04:39] LABS: ANION GAP 6 mmol/L (5-15); CHLORIDE 100 mmol/L (98-107); CREATININE 0.74 mg/dL (0.7-1.3)
[2018-03-04] MEDS: INSULIN LISPRO 100 UNITS/ML, PEN SQ-INSULIN SCH ×4 (04:52→23:25)
[2018-03-04 05:05] LABS: BASOPHILS # (AUTO) 0.14 x10^3/uL (0-0.1); BASOPHILS % (AUTO) 1 % (0-1); EOSINOPHILS # (AUTO) 0.86 x10^3/uL (0-0.4); EOSINOPHILS % (AUTO) 4 % (1-7); LYMPHOCYTES % (AUTO) 10 % (22-44); MD SCAN; MONOCYTES # (AUTO) 0.86 x10^3/uL (0.2-0.8); MONOCYTES % (AUTO) 4 % (2-9); NEUTROPHILS # (AUTO) 16.24 x10^3/uL (1.8-6.8); NEUTROPHILS % (AUTO) 81 % (42-75)
[2018-03-04] MEDS: FUROSEMIDE 40 MG/4 ML IV SCH (07:54)
[2018-03-04] MEDS: POTASSIUM CHLORIDE 20 MEQ PACKET PO SCH (07:54)
[2018-03-04] MEDS ORDERED: CEFTRIAXONE 2 GM in SODIUM CHLORIDE 0.9% 50 ML IVPB SCH (09:00)
[2018-03-04] MEDS: ENOXAPARIN 40 MG/0.4 ML SQ SCH (09:26)
[2018-03-04] MEDS: LISINOPRIL 20 MG TABLET PO SCH (09:28)
[2018-03-04] MEDS: LIDODERM 5% PATCH TD SCH (09:28)
[2018-03-04] MEDS: FAMOTIDINE 20 MG TABLET PO SCH ×2 (09:29→20:29)
[2018-03-04] MEDS: DOCUSATE 50 MG/5 ML, 10ML UDC PO SCH ×2 (09:29→20:29)
[2018-03-04 10:20] LABS: MICROSCOPIC AUTO
[2018-03-04 10:22] LABS: CULTURE INDICATED? YES
[2018-03-04] MEDS: INSULIN GLARGINE 100 UNITS/ML, PEN SQ-INSULIN SCH (10:22)
[2018-03-04] MEDS ORDERED: INSULIN GLARGINE 100 UNITS/ML, PEN SQ-INSULIN SCH (10:30)
[2018-03-04] MEDS: MICAFUNGIN 100 MG in SODIUM CHLORIDE 0.9% 100 ML IV SCH (12:48)
[2018-03-04] MEDS: CYANOCOBALAMIN 1,000 MCG TABLET PO SCH (20:29)
[2018-03-05] MEDS: ALBUTEROL SULFATE 2.5 MG/3 ML NPPB SCH ×6 (03:05→22:16)
[2018-03-05 04:00] VITALS: BP 125/74
[2018-03-05] MEDS: PROPOFOL 100 ML IV PRN ×6 (04:02→21:38)
[2018-03-05 04:18] LABS: MEAN CORPUSCULAR HEMOGLOBIN 33.1 pg (27.5-34.5); MEAN CORPUSCULAR HGB CONC 35.6 g/dL (33.2-36.2); MEAN CORPUSCULAR VOLUME 93.2 fL (81-97); PLATELET COUNT 315 x10^3/uL (130-400); RED BLOOD COUNT 3.08 x10^6/uL (4.38-5.82); RED CELL DISTRIBUTION WIDTH 14.6 % (9.4-14.8)
[2018-03-05 04:30] LABS: ALANINE AMINOTRANSFERASE 24 U/L (12-78); ALBUMIN 1.9 g/dL (3.4-5.0); ANION GAP 6 mmol/L (5-15); CALCIUM 8.1 mg/dL (8.5-10.1); CHLORIDE 99 mmol/L (98-107); CREATININE 0.75 mg/dL (0.7-1.3)
[2018-03-05 04:33] LABS: ALKALINE PHOSPHATASE 51 U/L (45-117); BILIRUBIN,TOTAL 0.5 mg/dL (0.2-1.0); TOTAL PROTEIN 7.7 g/dL (6.4-8.2)
[2018-03-05 04:40] LABS: MD YES
[2018-03-05 04:41] LABS: BAND#(MANUAL) 0.36 x10^3/uL; BANDS%(MANUAL) 2 % (0-7); BASOS#(MANUAL) 0.18 x10^3/uL (0-0.1); BASOS% (MANUAL) 1 % (0-1); EOS#(MANUAL) 0.18 x10^3/uL (0.0-0.4); EOS% (MANUAL) 1 % (1-7); LYMPH#(MANUAL) 2.35 x10^3/uL (1-3.4); LYMPHS% (MANUAL) 13 % (22-44); METAMYELOCYTES# (MANUAL) 0.36 x10^3/uL (0-0); METAMYELOCYTES% (MANUAL) 2 % (0-1); MONOS#(MANUAL) 0.36 x10^3/uL (0.3-2.7); MONOS% (MANUAL) 2 % (2-9); SEGS% (MANUAL) 79 % (42-75)
[2018-03-05 04:42] LABS: <PLATELET ESTIMATE> ADEQUATE; <PLT MORPHOLOGY> NORMAL PLT MORPH; ANISOCYTOSIS 1+; POLYCHROMASIA 1+
[2018-03-05] MEDS: PIPERACILLIN/TAZO/PMX 4.5GM 100 ML IV SCH ×4 (05:11→23:38)
[2018-03-05] MEDS: INSULIN LISPRO 100 UNITS/ML, PEN SQ-INSULIN SCH ×4 (05:12→23:39)
[2018-03-05] MEDS: HYDROcodone/APAP 5/325 TABLET PO PRN ×2 (05:17→15:29)
[2018-03-05] MEDS: DOCUSATE 50 MG/5 ML, 10ML UDC PO SCH ×2 (09:07→21:13)
[2018-03-05] MEDS: ENOXAPARIN 40 MG/0.4 ML SQ SCH (09:08)
[2018-03-05] MEDS: FAMOTIDINE 20 MG TABLET PO SCH ×2 (09:08→21:11)
[2018-03-05] MEDS: LIDODERM 5% PATCH TD SCH (09:08)
[2018-03-05] MEDS: LISINOPRIL 20 MG TABLET PO SCH (09:08)
[2018-03-05] MEDS: LACTULOSE 20 GM/30 ML UDC PO PRN (09:10)
[2018-03-05] MEDS ORDERED: GADOBUTROL 10 MMOL/10 ML VIAL ONE (10:23)
[2018-03-05] MEDS: INSULIN GLARGINE 100 UNITS/ML, PEN SQ-INSULIN SCH (12:13)
[2018-03-05] MEDS: MICAFUNGIN 100 MG in SODIUM CHLORIDE 0.9% 100 ML IV SCH (13:52)
[2018-03-05] MEDS ORDERED: GADOBUTROL 15 MMOL/15 ML VIAL ONE (14:19)
[2018-03-05] MEDS ORDERED: VANCOMYCIN PER PHARMACY MC PRN (14:30)
[2018-03-05] MEDS ORDERED: PHARMACOKINETIC MONITORING MC PRN (15:00)
[2018-03-05] MEDS: VANCOMYCIN 2,000 MG in SODIUM CHLORIDE 0.9% 500 ML IV SCH (15:10)
[2018-03-05] MEDS ORDERED: DO NOT GIVE XX PRN (15:30)
[2018-03-05] MEDS ORDERED: HEPARIN wt. based STROKE protocol IV PRN (15:30)
[2018-03-05] MEDS: BISACODYL 10 MG SUPP PR PRN (15:32)
[2018-03-05] MEDS: hydrALAzine 20 MG/ML, 1ML IVPush PRN (16:02)
[2018-03-05] MEDS: HEPARIN 25,000 UNITS/500ML PMX 500 ML IV PRN (18:21)
[2018-03-05] MEDS: CYANOCOBALAMIN 1,000 MCG TABLET PO SCH (21:10)
[2018-03-06] MEDS: PROPOFOL 100 ML IV PRN ×7 (00:54→23:08)
[2018-03-06] MEDS: HYDROcodone/APAP 5/325 TABLET PO PRN (02:25)
[2018-03-06] MEDS: ALBUTEROL SULFATE 2.5 MG/3 ML NPPB SCH ×6 (02:39→22:24)
[2018-03-06] MEDS: VANCOMYCIN 2,000 MG in SODIUM CHLORIDE 0.9% 500 ML IV SCH ×2 (03:27→15:00)
[2018-03-06 04:00] VITALS: BP 122/72
[2018-03-06 04:49] LABS: BASOPHILS # (AUTO) 0.04 x10^3/uL (0-0.1); BASOPHILS % (AUTO) 0 % (0-1); EOSINOPHILS # (AUTO) 0.57 x10^3/uL (0-0.4); EOSINOPHILS % (AUTO) 4 % (1-7); LYMPHOCYTES # (AUTO) 1.56 x10^3/uL (1-3.4); LYMPHOCYTES % (AUTO) 10 % (22-44); MD NO; MEAN CORPUSCULAR HEMOGLOBIN 32.9 pg (27.5-34.5); MEAN CORPUSCULAR HGB CONC 35.3 g/dL (33.2-36.2); MEAN CORPUSCULAR VOLUME 93.2 fL (81-97); MEAN PLATELET VOLUME 8.4 fL (7.4-10.4); MONOCYTES # (AUTO) 0.75 x10^3/uL (0.2-0.8); MONOCYTES % (AUTO) 5 % (2-9); NEUTROPHILS # (AUTO) 12.53 x10^3/uL (1.8-6.8); NEUTROPHILS % (AUTO) 81 % (42-75); PLATELET COUNT 344 x10^3/uL (130-400); RED BLOOD COUNT 3.04 x10^6/uL (4.38-5.82); RED CELL DISTRIBUTION WIDTH 14.4 % (9.4-14.8)
[2018-03-06 04:54] LABS: ANION GAP 7 mmol/L (5-15); CHLORIDE 100 mmol/L (98-107); CREATININE 0.69 mg/dL (0.7-1.3); TRIGLYCERIDES 138 mg/dL (50-200)
[2018-03-06] MEDS: PIPERACILLIN/TAZO/PMX 4.5GM 100 ML IV SCH ×4 (05:09→22:59)
[2018-03-06] MEDS: INSULIN LISPRO 100 UNITS/ML, PEN SQ-INSULIN SCH ×4 (05:17→23:09)
[2018-03-06] MEDS: LIDOCAINE-MPF 1%, 2ML ENDO PRN (09:15)
[2018-03-06] MEDS: FAMOTIDINE 20 MG TABLET PO SCH ×2 (09:32→21:16)
[2018-03-06] MEDS: DOCUSATE 50 MG/5 ML, 10ML UDC PO SCH ×2 (09:32→21:17)
[2018-03-06] MEDS: LACTULOSE 20 GM/30 ML UDC PO PRN (09:32)
[2018-03-06] MEDS: LISINOPRIL 20 MG TABLET PO SCH (09:32)
[2018-03-06] MEDS: LIDODERM 5% PATCH TD SCH (09:35)
[2018-03-06] MEDS: INSULIN GLARGINE 100 UNITS/ML, PEN SQ-INSULIN SCH (11:17)
[2018-03-06] MEDS: BISACODYL 10 MG SUPP PR PRN (12:08)
[2018-03-06] MEDS: MICAFUNGIN 100 MG in SODIUM CHLORIDE 0.9% 100 ML IV SCH (13:14)
[2018-03-06] MEDS: HEPARIN 25,000 UNITS/500ML PMX 500 ML IV PRN (16:27)
[2018-03-06] MEDS: CYANOCOBALAMIN 1,000 MCG TABLET PO SCH (21:16)
[2018-03-06] MEDS: ATORVASTATIN 80 MG TABLET PO SCH (21:17)
[2018-03-06] MEDS ORDERED: OMNIPAQUE 350 MG/ML, 100ML BOTTLE ONE (22:45)
[2018-03-07] MEDS: ALBUTEROL SULFATE 2.5 MG/3 ML NPPB SCH ×6 (02:22→23:22)
[2018-03-07] MEDS: PROPOFOL 100 ML IV PRN ×5 (02:54→20:36)
[2018-03-07] MEDS: VANCOMYCIN 2,000 MG in SODIUM CHLORIDE 0.9% 500 ML IV SCH (02:55)
[2018-03-07 04:00] VITALS: BP 132/74
[2018-03-07 04:26] LABS: BASOPHILS # (AUTO) 0.05 x10^3/uL (0-0.1); BASOPHILS % (AUTO) 0 % (0-1); EOSINOPHILS # (AUTO) 0.72 x10^3/uL (0-0.4); EOSINOPHILS % (AUTO) 6 % (1-7); LYMPHOCYTES # (AUTO) 1.84 x10^3/uL (1-3.4); LYMPHOCYTES % (AUTO) 15 % (22-44); MD NO; MEAN CORPUSCULAR HEMOGLOBIN 32.6 pg (27.5-34.5); MEAN CORPUSCULAR HGB CONC 35.1 g/dL (33.2-36.2); MEAN CORPUSCULAR VOLUME 92.8 fL (81-97); MONOCYTES # (AUTO) 0.86 x10^3/uL (0.2-0.8); MONOCYTES % (AUTO) 7 % (2-9); NEUTROPHILS # (AUTO) 8.97 x10^3/uL (1.8-6.8); NEUTROPHILS % (AUTO) 72 % (42-75); PLATELET COUNT 377 x10^3/uL (130-400); RED BLOOD COUNT 2.93 x10^6/uL (4.38-5.82); RED CELL DISTRIBUTION WIDTH 15.1 % (9.4-14.8)
[2018-03-07 04:33] LABS: ANION GAP 8 mmol/L (5-15); CALCIUM 8.2 mg/dL (8.5-10.1); CHLORIDE 103 mmol/L (98-107); CREATININE 0.66 mg/dL (0.7-1.3)
[2018-03-07] MEDS: INSULIN LISPRO 100 UNITS/ML, PEN SQ-INSULIN SCH ×4 (05:00→22:11)
[2018-03-07] MEDS: PIPERACILLIN/TAZO/PMX 4.5GM 100 ML IV SCH ×4 (05:23→22:11)
[2018-03-07] MEDS ORDERED: MIDAZOLAM 1 MG/ML, 5ML ONE (08:36)
[2018-03-07] MEDS ORDERED: FENTANYL PF 100 MCG/2ML IVPush ONE (09:00)
[2018-03-07] MEDS: LIDODERM 5% PATCH TD SCH (09:00)
[2018-03-07] MEDS: DOCUSATE 50 MG/5 ML, 10ML UDC PO SCH ×2 (09:00→20:24)
[2018-03-07] MEDS ORDERED: MIDAZOLAM 1 MG/ML, 5ML IVPush ONE (09:00)
[2018-03-07] MEDS: FUROSEMIDE 40 MG/4 ML IV SCH (09:51)
[2018-03-07] MEDS: LISINOPRIL 20 MG TABLET PO SCH (09:51)
[2018-03-07] MEDS: FAMOTIDINE 20 MG TABLET PO SCH ×2 (09:51→20:24)
[2018-03-07] MEDS: LINEZOLID PMX 600MG/300ML 300 ML IV SCH ×2 (09:56→20:24)
[2018-03-07] MEDS: INSULIN GLARGINE 100 UNITS/ML, PEN SQ-INSULIN SCH (11:58)
[2018-03-07] MEDS: HEPARIN 25,000 UNITS/500ML PMX 500 ML IV PRN (12:10)
[2018-03-07] MEDS: HYDROcodone/APAP 5/325 TABLET PO PRN ×2 (12:56→20:24)
[2018-03-07] MEDS: MICAFUNGIN 100 MG in SODIUM CHLORIDE 0.9% 100 ML IV SCH (13:09)
[2018-03-07] MEDS: CYANOCOBALAMIN 1,000 MCG TABLET PO SCH (20:24)
[2018-03-07] MEDS: ATORVASTATIN 80 MG TABLET PO SCH (20:24)
[2018-03-08] MEDS: PROPOFOL 100 ML IV PRN ×6 (00:46→23:00)
[2018-03-08] MEDS: HEPARIN 25,000 UNITS/500ML PMX 500 ML IV PRN (00:49)
[2018-03-08 01:42] LABS: BASOPHILS % (AUTO) 1 % (0-1); EOSINOPHILS # (AUTO) 0.84 x10^3/uL (0-0.4); EOSINOPHILS % (AUTO) 7 % (1-7); LYMPHOCYTES # (AUTO) 2.12 x10^3/uL (1-3.4); LYMPHOCYTES % (AUTO) 18 % (22-44); MD NO; MEAN CORPUSCULAR HEMOGLOBIN 32.3 pg (27.5-34.5); MEAN CORPUSCULAR VOLUME 92.4 fL (81-97); MEAN PLATELET VOLUME 7.9 fL (7.4-10.4); MONOCYTES # (AUTO) 0.85 x10^3/uL (0.2-0.8); MONOCYTES % (AUTO) 7 % (2-9); NEUTROPHILS # (AUTO) 8.05 x10^3/uL (1.8-6.8); NEUTROPHILS % (AUTO) 67 % (42-75); PLATELET COUNT 415 x10^3/uL (130-400); RED BLOOD COUNT 3.01 x10^6/uL (4.38-5.82); RED CELL DISTRIBUTION WIDTH 14.8 % (9.4-14.8)
[2018-03-08 01:52] LABS: ANION GAP 7 mmol/L (5-15); CALCIUM 8.1 mg/dL (8.5-10.1); CHLORIDE 101 mmol/L (98-107); CREATININE 0.67 mg/dL (0.7-1.3)
[2018-03-08] MEDS: HYDROcodone/APAP 5/325 TABLET PO PRN ×4 (02:21→22:12)
[2018-03-08] MEDS: ALBUTEROL SULFATE 2.5 MG/3 ML NPPB SCH ×6 (02:27→22:30)
[2018-03-08 04:00] VITALS: BP 98/50
[2018-03-08] MEDS: INSULIN LISPRO 100 UNITS/ML, PEN SQ-INSULIN SCH ×4 (05:04→22:50)
[2018-03-08] MEDS: PIPERACILLIN/TAZO/PMX 4.5GM 100 ML IV SCH ×4 (05:04→22:50)
[2018-03-08] MEDS ORDERED: POTASSIUM CHLORIDE 10% 40 MEQ/30 ML UDC PO ONE (07:00)
[2018-03-08] MEDS: LIDODERM 5% PATCH TD SCH (09:00)
[2018-03-08] MEDS: DOCUSATE 50 MG/5 ML, 10ML UDC PO SCH ×2 (09:00→20:25)
[2018-03-08] MEDS: LINEZOLID PMX 600MG/300ML 300 ML IV SCH ×2 (09:11→20:25)
[2018-03-08] MEDS: FUROSEMIDE 40 MG/4 ML IV SCH (09:12)
[2018-03-08] MEDS: LISINOPRIL 20 MG TABLET PO SCH (09:12)
[2018-03-08] MEDS: FAMOTIDINE 20 MG TABLET PO SCH ×2 (09:12→20:25)
[2018-03-08] MEDS: INSULIN GLARGINE 100 UNITS/ML, PEN SQ-INSULIN SCH (11:34)
[2018-03-08] MEDS: hydrALAzine 20 MG/ML, 1ML IVPush PRN (11:46)
[2018-03-08] MEDS ORDERED: ASPIRIN 81 MG TABLET CHEW PO ONE (12:00)
[2018-03-08] MEDS: ENOXAPARIN 40 MG/0.4 ML SQ SCH (12:34)
[2018-03-08] MEDS: CYANOCOBALAMIN 1,000 MCG TABLET PO SCH (20:25)
[2018-03-08] MEDS: ATORVASTATIN 80 MG TABLET PO SCH (20:25)
[2018-03-09] MEDS: ALBUTEROL SULFATE 2.5 MG/3 ML NPPB SCH ×6 (02:27→22:34)
[2018-03-09] MEDS: PROPOFOL 100 ML IV PRN ×5 (02:41→23:07)
[2018-03-09 04:00] VITALS: BP 132/78
[2018-03-09 04:37] LABS: BASOPHILS # (AUTO) 0.05 x10^3/uL (0-0.1); BASOPHILS % (AUTO) 1 % (0-1); EOSINOPHILS # (AUTO) 0.77 x10^3/uL (0-0.4); EOSINOPHILS % (AUTO) 8 % (1-7); LYMPHOCYTES # (AUTO) 1.69 x10^3/uL (1-3.4); LYMPHOCYTES % (AUTO) 17 % (22-44); MD NO; MEAN CORPUSCULAR HEMOGLOBIN 32.3 pg (27.5-34.5); MEAN CORPUSCULAR HGB CONC 34.3 g/dL (33.2-36.2); MEAN CORPUSCULAR VOLUME 94.1 fL (81-97); MEAN PLATELET VOLUME 8.1 fL (7.4-10.4); MONOCYTES # (AUTO) 0.92 x10^3/uL (0.2-0.8); MONOCYTES % (AUTO) 9 % (2-9); NEUTROPHILS # (AUTO) 6.85 x10^3/uL (1.8-6.8); NEUTROPHILS % (AUTO) 67 % (42-75); PLATELET COUNT 423 x10^3/uL (130-400); RED BLOOD COUNT 3.22 x10^6/uL (4.38-5.82); RED CELL DISTRIBUTION WIDTH 14.9 % (9.4-14.8)
[2018-03-09 04:52] LABS: CALCIUM 8.2 mg/dL (8.5-10.1); CHLORIDE 100 mmol/L (98-107)
[2018-03-09 04:58] LABS: ALANINE AMINOTRANSFERASE 24 U/L (12-78); ALBUMIN 1.8 g/dL (3.4-5.0); ALKALINE PHOSPHATASE 50 U/L (45-117); ANION GAP 7 mmol/L (5-15); BILIRUBIN,TOTAL 0.6 mg/dL (0.2-1.0); CREATININE 0.79 mg/dL (0.7-1.3); TOTAL PROTEIN 7.3 g/dL (6.4-8.2); TRIGLYCERIDES 106 mg/dL (50-200)
[2018-03-09] MEDS: PIPERACILLIN/TAZO/PMX 4.5GM 100 ML IV SCH ×4 (06:00→23:07)
[2018-03-09] MEDS: INSULIN LISPRO 100 UNITS/ML, PEN SQ-INSULIN SCH ×4 (06:00→23:12)
[2018-03-09] MEDS: HYDROcodone/APAP 5/325 TABLET PO PRN ×2 (06:01→14:33)
[2018-03-09] MEDS: DOCUSATE 50 MG/5 ML, 10ML UDC PO SCH ×2 (09:00→20:44)
[2018-03-09] MEDS: FAMOTIDINE 20 MG TABLET PO SCH ×2 (09:34→20:44)
[2018-03-09] MEDS: LINEZOLID PMX 600MG/300ML 300 ML IV SCH ×2 (09:34→20:44)
[2018-03-09] MEDS: FUROSEMIDE 40 MG/4 ML IV SCH (09:34)
[2018-03-09] MEDS: LISINOPRIL 20 MG TABLET PO SCH (09:34)
[2018-03-09] MEDS: LIDODERM 5% PATCH TD SCH (11:06)
[2018-03-09] MEDS: INSULIN GLARGINE 100 UNITS/ML, PEN SQ-INSULIN SCH (11:07)
[2018-03-09] MEDS: CLOPIDOGREL 75 MG TABLET PO SCH (12:56)
[2018-03-09] MEDS: ENOXAPARIN 40 MG/0.4 ML SQ SCH (12:56)
[2018-03-09] MEDS: CYANOCOBALAMIN 1,000 MCG TABLET PO SCH (20:44)
[2018-03-09] MEDS: ATORVASTATIN 80 MG TABLET PO SCH (20:44)
[2018-03-10] MEDS: ALBUTEROL SULFATE 2.5 MG/3 ML NPPB SCH ×6 (02:48→22:23)
[2018-03-10] MEDS: PROPOFOL 100 ML IV PRN ×4 (03:14→23:21)
[2018-03-10 04:00] VITALS: BP 141/79
[2018-03-10 04:32] LABS: BASOPHILS # (AUTO) 0.08 x10^3/uL (0-0.1); BASOPHILS % (AUTO) 1 % (0-1); EOSINOPHILS # (AUTO) 0.66 x10^3/uL (0-0.4); EOSINOPHILS % (AUTO) 7 % (1-7); LYMPHOCYTES # (AUTO) 1.43 x10^3/uL (1-3.4); LYMPHOCYTES % (AUTO) 15 % (22-44); MD NO; MEAN CORPUSCULAR HGB CONC 35.1 g/dL (33.2-36.2); MEAN CORPUSCULAR VOLUME 94.2 fL (81-97); MEAN PLATELET VOLUME 7.8 fL (7.4-10.4); MONOCYTES # (AUTO) 0.73 x10^3/uL (0.2-0.8); MONOCYTES % (AUTO) 8 % (2-9); NEUTROPHILS # (AUTO) 6.88 x10^3/uL (1.8-6.8); NEUTROPHILS % (AUTO) 70 % (42-75); PLATELET COUNT 358 x10^3/uL (130-400); RED BLOOD COUNT 3.16 x10^6/uL (4.38-5.82); RED CELL DISTRIBUTION WIDTH 15.1 % (9.4-14.8)
[2018-03-10 04:44] LABS: ANION GAP 6 mmol/L (5-15); CHLORIDE 100 mmol/L (98-107)
[2018-03-10 04:52] LABS: CALCIUM 8.2 mg/dL (8.5-10.1); CREATININE 0.73 mg/dL (0.7-1.3)
[2018-03-10] MEDS: PIPERACILLIN/TAZO/PMX 4.5GM 100 ML IV SCH ×2 (05:01→11:00)
[2018-03-10] MEDS: INSULIN LISPRO 100 UNITS/ML, PEN SQ-INSULIN SCH ×4 (05:04→23:01)
[2018-03-10] MEDS: ASPIRIN 81 MG TABLET EC PO SCH (06:22)
[2018-03-10] MEDS: FUROSEMIDE 40 MG/4 ML IV SCH ×2 (08:45→20:33)
[2018-03-10] MEDS: LISINOPRIL 20 MG TABLET PO SCH (08:45)
[2018-03-10] MEDS: CLOPIDOGREL 75 MG TABLET PO SCH (08:45)
[2018-03-10] MEDS: DOCUSATE 50 MG/5 ML, 10ML UDC PO SCH ×2 (08:45→20:34)
[2018-03-10] MEDS: FAMOTIDINE 20 MG TABLET PO SCH ×2 (08:45→20:34)
[2018-03-10] MEDS: LIDODERM 5% PATCH TD SCH (08:46)
[2018-03-10] MEDS: LINEZOLID PMX 600MG/300ML 300 ML IV SCH ×2 (08:47→20:34)
[2018-03-10] MEDS: INSULIN GLARGINE 100 UNITS/ML, PEN SQ-INSULIN SCH (10:26)
[2018-03-10] MEDS: ENOXAPARIN 40 MG/0.4 ML SQ SCH (13:58)
[2018-03-10] MEDS ORDERED: CETACAINE 50ML TP PRN (15:30)
[2018-03-10] MEDS: ATORVASTATIN 80 MG TABLET PO SCH (20:33)
[2018-03-10] MEDS: CYANOCOBALAMIN 1,000 MCG TABLET PO SCH (20:35)
[2018-03-11] MEDS: ALBUTEROL SULFATE 2.5 MG/3 ML NPPB SCH ×6 (03:00→22:42)
[2018-03-11] MEDS: PROPOFOL 100 ML IV PRN ×5 (03:25→23:08)
[2018-03-11 04:00] VITALS: BP 91/52
[2018-03-11 04:34] LABS: ANION GAP 7 mmol/L (5-15); CALCIUM 8.4 mg/dL (8.5-10.1); CHLORIDE 102 mmol/L (98-107); CREATININE 0.72 mg/dL (0.7-1.3)
[2018-03-11 04:48] LABS: BASOPHILS # (AUTO) 0.06 x10^3/uL (0-0.1); BASOPHILS % (AUTO) 1 % (0-1); EOSINOPHILS # (AUTO) 0.62 x10^3/uL (0-0.4); EOSINOPHILS % (AUTO) 6 % (1-7); LYMPHOCYTES # (AUTO) 2.05 x10^3/uL (1-3.4); LYMPHOCYTES % (AUTO) 20 % (22-44); MD NO; MEAN CORPUSCULAR HEMOGLOBIN 32.5 pg (27.5-34.5); MEAN CORPUSCULAR HGB CONC 34.6 g/dL (33.2-36.2); MEAN CORPUSCULAR VOLUME 93.8 fL (81-97); MEAN PLATELET VOLUME 7.9 fL (7.4-10.4); MONOCYTES # (AUTO) 0.86 x10^3/uL (0.2-0.8); MONOCYTES % (AUTO) 8 % (2-9); NEUTROPHILS # (AUTO) 6.64 x10^3/uL (1.8-6.8); NEUTROPHILS % (AUTO) 65 % (42-75); PLATELET COUNT 458 x10^3/uL (130-400); RED BLOOD COUNT 3.27 x10^6/uL (4.38-5.82); RED CELL DISTRIBUTION WIDTH 15.1 % (9.4-14.8)
[2018-03-11] MEDS: INSULIN LISPRO 100 UNITS/ML, PEN SQ-INSULIN SCH ×4 (06:30→23:12)
[2018-03-11] MEDS: ASPIRIN 81 MG TABLET EC PO SCH (06:31)
[2018-03-11] MEDS: LISINOPRIL 20 MG TABLET PO SCH (08:47)
[2018-03-11] MEDS: CLOPIDOGREL 75 MG TABLET PO SCH (08:47)
[2018-03-11] MEDS: DOCUSATE 50 MG/5 ML, 10ML UDC PO SCH ×2 (08:47→20:01)
[2018-03-11] MEDS: FUROSEMIDE 40 MG/4 ML IV SCH ×2 (08:47→20:01)
[2018-03-11] MEDS: FAMOTIDINE 20 MG TABLET PO SCH ×2 (08:47→20:01)
[2018-03-11] MEDS: LINEZOLID PMX 600MG/300ML 300 ML IV SCH ×2 (09:00→20:01)
[2018-03-11] MEDS: LIDODERM 5% PATCH TD SCH (10:09)
[2018-03-11] MEDS: INSULIN GLARGINE 100 UNITS/ML, PEN SQ-INSULIN SCH (11:04)
[2018-03-11] MEDS: HYDROcodone/APAP 5/325 TABLET PO PRN ×2 (11:27→19:11)
[2018-03-11] MEDS: ENOXAPARIN 40 MG/0.4 ML SQ SCH (14:18)
[2018-03-11] MEDS: ATORVASTATIN 80 MG TABLET PO SCH (20:01)
[2018-03-11] MEDS: CYANOCOBALAMIN 1,000 MCG TABLET PO SCH (20:02)
[2018-03-12] MEDS: ALBUTEROL SULFATE 2.5 MG/3 ML NPPB SCH ×6 (03:15→23:00)
[2018-03-12 04:00] VITALS: BP 126/73
[2018-03-12 04:46] LABS: BASOPHILS # (AUTO) 0.08 x10^3/uL (0-0.1); BASOPHILS % (AUTO) 1 % (0-1); EOSINOPHILS # (AUTO) 0.58 x10^3/uL (0-0.4); EOSINOPHILS % (AUTO) 5 % (1-7); LYMPHOCYTES # (AUTO) 2.43 x10^3/uL (1-3.4); LYMPHOCYTES % (AUTO) 20 % (22-44); MD NO; MEAN CORPUSCULAR HEMOGLOBIN 32.3 pg (27.5-34.5); MEAN CORPUSCULAR HGB CONC 34.5 g/dL (33.2-36.2); MEAN CORPUSCULAR VOLUME 93.5 fL (81-97); MONOCYTES # (AUTO) 0.95 x10^3/uL (0.2-0.8); MONOCYTES % (AUTO) 8 % (2-9); NEUTROPHILS # (AUTO) 8.15 x10^3/uL (1.8-6.8); NEUTROPHILS % (AUTO) 67 % (42-75); PLATELET COUNT 476 x10^3/uL (130-400); RED BLOOD COUNT 3.57 x10^6/uL (4.38-5.82); RED CELL DISTRIBUTION WIDTH 15.3 % (9.4-14.8)
[2018-03-12 04:55] LABS: ANION GAP 8 mmol/L (5-15); CALCIUM 8.2 mg/dL (8.5-10.1); CHLORIDE 103 mmol/L (98-107); CREATININE 0.69 mg/dL (0.7-1.3); TRIGLYCERIDES 174 mg/dL (50-200)
[2018-03-12] MEDS ORDERED: POTASSIUM CHLORIDE 10% 20 MEQ/15 ML UDC ONE (05:22)
[2018-03-12] MEDS: INSULIN LISPRO 100 UNITS/ML, PEN SQ-INSULIN SCH ×4 (05:25→23:17)
[2018-03-12] MEDS: ASPIRIN 81 MG TABLET EC PO SCH (05:28)
[2018-03-12] MEDS ORDERED: POTASSIUM CHLORIDE 20 MEQ TAB.ER.PRT PO ONE ×2 (05:30→10:00)
[2018-03-12] MEDS ORDERED: MAGNESIUM SULFATE 4 GM in SODIUM CHLORIDE 0.9% 100 ML IV ONE (07:30)
[2018-03-12] MEDS ORDERED: POTASSIUM CHLORIDE 20 MEQ TAB.ER.PRT PO SCH (09:00)
[2018-03-12] MEDS: LINEZOLID PMX 600MG/300ML 300 ML IV SCH ×2 (09:32→21:17)
[2018-03-12] MEDS: FUROSEMIDE 40 MG/4 ML IV SCH ×2 (09:33→21:11)
[2018-03-12] MEDS: LISINOPRIL 20 MG TABLET PO SCH (09:33)
[2018-03-12] MEDS: FAMOTIDINE 20 MG TABLET PO SCH ×2 (09:33→21:00)
[2018-03-12] MEDS: METOLAZONE 5 MG TABLET PO SCH ×2 (09:33→21:12)
[2018-03-12] MEDS: CLOPIDOGREL 75 MG TABLET PO SCH (09:33)
[2018-03-12] MEDS: LIDODERM 5% PATCH TD SCH (09:34)
[2018-03-12] MEDS: RISPERIDONE 1 MG/ML ORAL SOLN PO SCH ×2 (09:34→21:10)
[2018-03-12] MEDS: INSULIN GLARGINE 100 UNITS/ML, PEN SQ-INSULIN SCH (11:07)
[2018-03-12] MEDS: ACETAMINOPHEN 325 MG TABLET PO PRN (14:22)
[2018-03-12] MEDS: ENOXAPARIN 40 MG/0.4 ML SQ SCH (14:22)
[2018-03-12] MEDS ORDERED: POTASSIUM CHLORIDE 10% 40 MEQ/30 ML UDC PO SCH (21:00)
[2018-03-12] MEDS: CYANOCOBALAMIN 1,000 MCG TABLET PO SCH (21:00)
[2018-03-12] MEDS: ATORVASTATIN 80 MG TABLET PO SCH (21:12)
[2018-03-12] MEDS: HYDROcodone/APAP 5/325 TABLET PO PRN (21:18)
[2018-03-13] MEDS: ALBUTEROL SULFATE 2.5 MG/3 ML NPPB SCH ×5 (03:00→23:00)
[2018-03-13 04:46] VITALS: BP 90/50
[2018-03-13] MEDS: ASPIRIN 81 MG TABLET CHEW PO SCH (05:24)
[2018-03-13] MEDS: INSULIN LISPRO 100 UNITS/ML, PEN SQ-INSULIN SCH ×3 (05:30→17:37)
[2018-03-13 05:59] LABS: BASOPHILS # (AUTO) 0.07 x10^3/uL (0-0.1); BASOPHILS % (AUTO) 1 % (0-1); EOSINOPHILS # (AUTO) 0.43 x10^3/uL (0-0.4); EOSINOPHILS % (AUTO) 3 % (1-7); LYMPHOCYTES # (AUTO) 1.81 x10^3/uL (1-3.4); LYMPHOCYTES % (AUTO) 14 % (22-44); MD NO; MEAN CORPUSCULAR HEMOGLOBIN 32.5 pg (27.5-34.5); MEAN CORPUSCULAR HGB CONC 34.7 g/dL (33.2-36.2); MEAN CORPUSCULAR VOLUME 93.7 fL (81-97); MEAN PLATELET VOLUME 7.8 fL (7.4-10.4); MONOCYTES # (AUTO) 1.06 x10^3/uL (0.2-0.8); MONOCYTES % (AUTO) 8 % (2-9); NEUTROPHILS # (AUTO) 9.57 x10^3/uL (1.8-6.8); NEUTROPHILS % (AUTO) 74 % (42-75); PLATELET COUNT 506 x10^3/uL (130-400); RED BLOOD COUNT 3.74 x10^6/uL (4.38-5.82); RED CELL DISTRIBUTION WIDTH 16.1 % (9.4-14.8)
[2018-03-13 06:00] LABS: ANION GAP 7 mmol/L (5-15); CHLORIDE 99 mmol/L (98-107); CREATININE 0.92 mg/dL (0.7-1.3)
[2018-03-13] MEDS: METOLAZONE 5 MG TABLET PO SCH (09:00)
[2018-03-13] MEDS: FUROSEMIDE 40 MG/4 ML IV SCH (09:54)
[2018-03-13] MEDS: LINEZOLID PMX 600MG/300ML 300 ML IV SCH ×2 (09:55→20:04)
[2018-03-13] MEDS: CLOPIDOGREL 75 MG TABLET PO SCH (09:55)
[2018-03-13] MEDS: FAMOTIDINE 20 MG TABLET PO SCH ×2 (09:55→20:04)
[2018-03-13] MEDS: LIDODERM 5% PATCH TD SCH (09:55)
[2018-03-13] MEDS: LISINOPRIL 20 MG TABLET PO SCH (09:55)
[2018-03-13] MEDS: RISPERIDONE 1 MG/ML ORAL SOLN PO SCH ×2 (09:57→20:04)
[2018-03-13] MEDS: INSULIN GLARGINE 100 UNITS/ML, PEN SQ-INSULIN SCH (11:28)
[2018-03-13] MEDS: ENOXAPARIN 40 MG/0.4 ML SQ SCH (12:48)
[2018-03-13] MEDS: ACETAMINOPHEN 325 MG TABLET PO PRN (12:52)
[2018-03-13] MEDS: HYDROcodone/APAP 5/325 TABLET PO PRN (15:16)
[2018-03-13] MEDS: hydrOXyzine 10 MG/5 ML ORAL SOL PO PRN (18:16)
[2018-03-13] MEDS: ATORVASTATIN 80 MG TABLET PO SCH (20:04)
[2018-03-13] MEDS: CYANOCOBALAMIN 1,000 MCG TABLET PO SCH (20:09)
[2018-03-14] MEDS: HYDROcodone/APAP 5/325 TABLET PO PRN (00:32)
[2018-03-14] MEDS: INSULIN LISPRO 100 UNITS/ML, PEN SQ-INSULIN SCH ×5 (00:33→22:47)
[2018-03-14] MEDS: hydrOXyzine 10 MG/5 ML ORAL SOL PO PRN (03:02)
[2018-03-14] MEDS: ALBUTEROL SULFATE 2.5 MG/3 ML NPPB SCH ×4 (03:07→15:30)
[2018-03-14 04:33] LABS: MEAN CORPUSCULAR HEMOGLOBIN 32.5 pg (27.5-34.5); MEAN CORPUSCULAR HGB CONC 34.6 g/dL (33.2-36.2); MEAN CORPUSCULAR VOLUME 93.9 fL (81-97); MEAN PLATELET VOLUME 7.9 fL (7.4-10.4); PLATELET COUNT 494 x10^3/uL (130-400); RED BLOOD COUNT 3.89 x10^6/uL (4.38-5.82); RED CELL DISTRIBUTION WIDTH 15.8 % (9.4-14.8)
[2018-03-14 04:39] LABS: ANION GAP 11 mmol/L (5-15); CHLORIDE 94 mmol/L (98-107); CREATININE 1.21 mg/dL (0.7-1.3)
[2018-03-14 04:54] LABS: MD YES
[2018-03-14 04:56] LABS: BAND#(MANUAL) 0.27 x10^3/uL; BANDS%(MANUAL) 2 % (0-7); BASOS#(MANUAL) 0.13 x10^3/uL (0-0.1); BASOS% (MANUAL) 1 % (0-1); EOS#(MANUAL) 0.13 x10^3/uL (0.0-0.4); EOS% (MANUAL) 1 % (1-7); LYMPH#(MANUAL) 2.26 x10^3/uL (1-3.4); LYMPHS% (MANUAL) 17 % (22-44); METAMYELOCYTES# (MANUAL) 0.27 x10^3/uL (0-0); METAMYELOCYTES% (MANUAL) 2 % (0-1); MONOS#(MANUAL) 0.93 x10^3/uL (0.3-2.7); MONOS% (MANUAL) 7 % (2-9); SEG#(MANUAL) 9.31 x10^3/uL (1.8-6.8); SEGS% (MANUAL) 70 % (42-75)
[2018-03-14 04:57] LABS: <PLATELET ESTIMATE> INCREASED; <PLT MORPHOLOGY> NORMAL PLT MORPH; ANISOCYTOSIS 1+; POLYCHROMASIA 1+
[2018-03-14] MEDS: ASPIRIN 81 MG TABLET CHEW PO SCH (05:11)
[2018-03-14] MEDS ORDERED: PROPOFOL 10 MG/ML, 100ML IV ONE (08:00)
[2018-03-14] MEDS ORDERED: MIDAZOLAM 1 MG/ML, 5ML ONE (08:00)
[2018-03-14] MEDS ORDERED: ETOMIDATE 20 MG/10 ML ONE (08:00)
[2018-03-14] MEDS: LIDODERM 5% PATCH TD SCH ×2 (09:00→09:16)
[2018-03-14] MEDS: RISPERIDONE 1 MG/ML ORAL SOLN PO SCH (09:00)
[2018-03-14] MEDS: FUROSEMIDE 40 MG/4 ML IV SCH (09:13)
[2018-03-14] MEDS: CLOPIDOGREL 75 MG TABLET PO SCH (09:15)
[2018-03-14] MEDS: METOLAZONE 5 MG TABLET PO SCH (09:15)
[2018-03-14] MEDS: FAMOTIDINE 20 MG TABLET PO SCH ×2 (09:15→20:46)
[2018-03-14] MEDS: metFORMIN 500 MG TABLET PO SCH ×2 (09:15→17:39)
[2018-03-14] MEDS: LISINOPRIL 20 MG TABLET PO SCH (09:16)
[2018-03-14] MEDS: LINEZOLID PMX 600MG/300ML 300 ML IV SCH ×2 (09:17→20:46)
[2018-03-14] MEDS: INSULIN GLARGINE 100 UNITS/ML, PEN SQ-INSULIN SCH (10:42)
[2018-03-14] MEDS: ENOXAPARIN 40 MG/0.4 ML SQ SCH (12:59)
[2018-03-14] MEDS ORDERED: GLYCOPYRROLATE 0.2MG/1ML, 5ML IVPush SCH (13:00)
[2018-03-14] MEDS ORDERED: PROPOFOL 100 ML IV PRN (15:37)
[2018-03-14] MEDS: ALBUTEROL SULFATE 2.5 MG/3 ML INLINE SCH ×2 (18:34→22:07)
[2018-03-14] MEDS ORDERED: SODIUM CHLORIDE 0.9%, 500ML IVBOLUS ONE ×2 (20:00→22:00)
[2018-03-14] MEDS: ATORVASTATIN 80 MG TABLET PO SCH (20:46)
[2018-03-14] MEDS: CYANOCOBALAMIN 1,000 MCG TABLET PO SCH (20:46)
[2018-03-15] MEDS: ALBUTEROL SULFATE 2.5 MG/3 ML INLINE SCH ×6 (02:18→22:24)
[2018-03-15] MEDS ORDERED: SODIUM CHLORIDE 0.9%, 500ML IVBOLUS ONE (02:30)
[2018-03-15] MEDS ORDERED: SODIUM CHLORIDE 0.9% 1,000ML IVBOLUS ONE (04:00)
[2018-03-15 04:32] VITALS: BP 92/54
[2018-03-15] MEDS: INSULIN LISPRO 100 UNITS/ML, PEN SQ-INSULIN SCH ×3 (04:34→17:00)
[2018-03-15 05:12] LABS: BASOPHILS # (AUTO) 0.05 x10^3/uL (0-0.1); BASOPHILS % (AUTO) 0 % (0-1); EOSINOPHILS % (AUTO) 4 % (1-7); LYMPHOCYTES # (AUTO) 2.26 x10^3/uL (1-3.4); LYMPHOCYTES % (AUTO) 16 % (22-44); MD NO; MEAN CORPUSCULAR HEMOGLOBIN 32.6 pg (27.5-34.5); MEAN CORPUSCULAR HGB CONC 34.7 g/dL (33.2-36.2); MEAN CORPUSCULAR VOLUME 94.1 fL (81-97); MEAN PLATELET VOLUME 7.8 fL (7.4-10.4); MONOCYTES # (AUTO) 1.32 x10^3/uL (0.2-0.8); MONOCYTES % (AUTO) 10 % (2-9); NEUTROPHILS # (AUTO) 9.68 x10^3/uL (1.8-6.8); NEUTROPHILS % (AUTO) 70 % (42-75); PLATELET COUNT 426 x10^3/uL (130-400); RED BLOOD COUNT 3.84 x10^6/uL (4.38-5.82); RED CELL DISTRIBUTION WIDTH 15.7 % (9.4-14.8)
[2018-03-15 05:25] LABS: ANION GAP 7 mmol/L (5-15); CALCIUM 8.6 mg/dL (8.5-10.1); CHLORIDE 100 mmol/L (98-107)
[2018-03-15 05:27] LABS: CREATININE 1.14 mg/dL (0.7-1.3); TRIGLYCERIDES 137 mg/dL (50-200)
[2018-03-15] MEDS ORDERED: NOREPINEPHRINE 4 MG in SODIUM CHLORIDE 0.9% 246 ML IV PRN (07:30)
[2018-03-15] MEDS: LISINOPRIL 20 MG TABLET PO SCH (08:30)
[2018-03-15] MEDS: LINEZOLID PMX 600MG/300ML 300 ML IV SCH ×2 (08:31→19:45)
[2018-03-15] MEDS ORDERED: SODIUM CHLORIDE FLUSH 0.9%, 20 ML ONE (09:02)
[2018-03-15] MEDS ORDERED: VECURONIUM 10 MG ONE (09:02)
[2018-03-15] MEDS: metFORMIN 500 MG TABLET PO SCH ×2 (09:15→18:32)
[2018-03-15] MEDS: FAMOTIDINE 20 MG TABLET PO SCH ×2 (09:16→19:37)
[2018-03-15] MEDS: METOLAZONE 5 MG TABLET PO SCH (09:16)
[2018-03-15] MEDS: LIDODERM 5% PATCH TD SCH (09:20)
[2018-03-15] MEDS ORDERED: LIDOCAINE-MPF 2%, 2ML ONE (09:33)
[2018-03-15 11:10] LABS: CULTURE INDICATED? NO; MICROSCOPIC AUTO
[2018-03-15] MEDS ORDERED: FENTANYL PF 100 MCG/2ML IVPush ONE (11:35)
[2018-03-15] MEDS ORDERED: VECURONIUM 10 MG IVPush ONE (11:38)
[2018-03-15] MEDS: ASPIRIN 81 MG TABLET CHEW PO SCH (12:00)
[2018-03-15] MEDS: INSULIN GLARGINE 100 UNITS/ML, PEN SQ-INSULIN SCH (12:51)
[2018-03-15] MEDS: CLOPIDOGREL 75 MG TABLET PO SCH (12:56)
[2018-03-15] MEDS: ENOXAPARIN 40 MG/0.4 ML SQ SCH (12:56)
[2018-03-15] MEDS: ATORVASTATIN 80 MG TABLET PO SCH (19:37)
[2018-03-15] MEDS: HYDROcodone/APAP 5/325 TABLET PO PRN (19:37)
[2018-03-15] MEDS: CYANOCOBALAMIN 1,000 MCG TABLET PO SCH (19:43)
[2018-03-16] MEDS: INSULIN LISPRO 100 UNITS/ML, PEN SQ-INSULIN SCH ×5 (00:34→23:52)
[2018-03-16] MEDS: HYDROcodone/APAP 5/325 TABLET PO PRN ×5 (01:48→22:23)
[2018-03-16] MEDS: ALBUTEROL SULFATE 2.5 MG/3 ML INLINE SCH ×6 (02:25→22:19)
[2018-03-16] MEDS: FENTANYL PF 100 MCG/2ML IVPush PRN (03:00)
[2018-03-16] MEDS: ACETAMINOPHEN 325 MG TABLET PO PRN ×2 (04:52→13:48)
[2018-03-16] MEDS: ASPIRIN 81 MG TABLET CHEW PO SCH (04:52)
[2018-03-16 04:55] LABS: ALBUMIN 2.5 g/dL (3.4-5.0); ANION GAP 9 mmol/L (5-15); CHLORIDE 98 mmol/L (98-107)
[2018-03-16 04:56] VITALS: BP 109/66
[2018-03-16 04:59] LABS: ALANINE AMINOTRANSFERASE 29 U/L (12-78); ALKALINE PHOSPHATASE 68 U/L (45-117); BILIRUBIN,TOTAL 0.5 mg/dL (0.2-1.0); CREATININE 0.79 mg/dL (0.7-1.3); TOTAL PROTEIN 8.2 g/dL (6.4-8.2)
[2018-03-16 05:14] LABS: BASOPHILS # (AUTO) 0.41 x10^3/uL (0-0.1); BASOPHILS % (AUTO) 3 % (0-1); EOSINOPHILS # (AUTO) 0.57 x10^3/uL (0-0.4); EOSINOPHILS % (AUTO) 4 % (1-7); LYMPHOCYTES # (AUTO) 1.41 x10^3/uL (1-3.4); LYMPHOCYTES % (AUTO) 10 % (22-44); MD NO; MEAN CORPUSCULAR HEMOGLOBIN 33.1 pg (27.5-34.5); MEAN CORPUSCULAR HGB CONC 35.1 g/dL (33.2-36.2); MEAN CORPUSCULAR VOLUME 94.3 fL (81-97); MEAN PLATELET VOLUME 7.9 fL (7.4-10.4); MONOCYTES # (AUTO) 1.32 x10^3/uL (0.2-0.8); MONOCYTES % (AUTO) 9 % (2-9); NEUTROPHILS # (AUTO) 10.53 x10^3/uL (1.8-6.8); NEUTROPHILS % (AUTO) 74 % (42-75); PLATELET COUNT 343 x10^3/uL (130-400); RED BLOOD COUNT 3.75 x10^6/uL (4.38-5.82); RED CELL DISTRIBUTION WIDTH 15.8 % (9.4-14.8)
[2018-03-16] MEDS: metFORMIN 500 MG TABLET PO SCH ×2 (07:28→15:52)
[2018-03-16] MEDS: FAMOTIDINE 20 MG TABLET PO SCH ×2 (07:28→20:54)
[2018-03-16] MEDS: METOLAZONE 5 MG TABLET PO SCH (07:28)
[2018-03-16] MEDS: CLOPIDOGREL 75 MG TABLET PO SCH (07:28)
[2018-03-16] MEDS: LISINOPRIL 20 MG TABLET PO SCH (07:29)
[2018-03-16] MEDS: LINEZOLID PMX 600MG/300ML 300 ML IV SCH ×2 (09:28→20:54)
[2018-03-16] MEDS: INSULIN GLARGINE 100 UNITS/ML, PEN SQ-INSULIN SCH (11:27)
[2018-03-16] MEDS: ENOXAPARIN 40 MG/0.4 ML SQ SCH (11:27)
[2018-03-16 12:00] LABS: CLOSTRIDIUM DIFFICILE ANTIGEN NEGATIVE; CLOSTRIDIUM DIFFICILE TOXIN NEGATIVE (Negative)
[2018-03-16] MEDS: LIDODERM 5% PATCH TD SCH (13:47)
[2018-03-16] MEDS: ATORVASTATIN 80 MG TABLET PO SCH (20:53)
[2018-03-16] MEDS: CYANOCOBALAMIN 1,000 MCG TABLET PO SCH (20:55)
[2018-03-17] MEDS: ALBUTEROL SULFATE 2.5 MG/3 ML INLINE SCH ×6 (01:51→22:10)
[2018-03-17 04:00] VITALS: BP 112/68
[2018-03-17] MEDS: HYDROcodone/APAP 5/325 TABLET PO PRN ×2 (04:04→13:00)
[2018-03-17 04:33] LABS: MEAN CORPUSCULAR HEMOGLOBIN 33.4 pg (27.5-34.5); MEAN CORPUSCULAR HGB CONC 35.3 g/dL (33.2-36.2); MEAN CORPUSCULAR VOLUME 94.7 fL (81-97); MEAN PLATELET VOLUME 7.7 fL (7.4-10.4); PLATELET COUNT 355 x10^3/uL (130-400); RED BLOOD COUNT 3.73 x10^6/uL (4.38-5.82); RED CELL DISTRIBUTION WIDTH 15.9 % (9.4-14.8)
[2018-03-17 04:43] LABS: ANION GAP 8 mmol/L (5-15); CALCIUM 8.8 mg/dL (8.5-10.1); CHLORIDE 95 mmol/L (98-107); CREATININE 0.68 mg/dL (0.7-1.3)
[2018-03-17 04:44] LABS: TRIGLYCERIDES 103 mg/dL (50-200)
[2018-03-17 04:52] LABS: MD YES
[2018-03-17 04:53] LABS: BAND#(MANUAL) 0.15 x10^3/uL; BANDS%(MANUAL) 1 % (0-7); EOS#(MANUAL) 0.45 x10^3/uL (0.0-0.4); EOS% (MANUAL) 3 % (1-7); LYMPH#(MANUAL) 1.96 x10^3/uL (1-3.4); LYMPHS% (MANUAL) 13 % (22-44); MONOS#(MANUAL) 1.51 x10^3/uL (0.3-2.7); MONOS% (MANUAL) 10 % (2-9); MYELOCYTES# (MANUAL) 0.15 x10^3/uL (0-0); MYELOCYTES% (MANUAL) 1 % (0-0); SEG#(MANUAL) 10.87 x10^3/uL (1.8-6.8); SEGS% (MANUAL) 72 % (42-75)
[2018-03-17 04:54] LABS: <PLATELET ESTIMATE> ADEQUATE; <PLT MORPHOLOGY> NORMAL PLT MORPH; ANISOCYTOSIS 1+; POLYCHROMASIA 1+
[2018-03-17] MEDS: ASPIRIN 81 MG TABLET CHEW PO SCH (06:00)
[2018-03-17] MEDS: INSULIN LISPRO 100 UNITS/ML, PEN SQ-INSULIN SCH ×3 (06:41→18:30)
[2018-03-17] MEDS: FENTANYL PF 100 MCG/2ML IVPush PRN ×2 (07:51→22:23)
[2018-03-17] MEDS: LINEZOLID PMX 600MG/300ML 300 ML IV SCH (07:59)
[2018-03-17] MEDS: metFORMIN 500 MG TABLET PO SCH ×2 (08:00→18:48)
[2018-03-17] MEDS ORDERED: CATHFLO-ALTEPLASE 2 MG/2 ML CATHFLUSH ONE (08:30)
[2018-03-17] MEDS ORDERED: MAGNESIUM SULFATE PMX 2GM/50ML 50 ML IV ONE (08:30)
[2018-03-17] MEDS ORDERED: CEFAZOLIN PMX 1GM/50ML 50 ML IV ONE (09:30)
[2018-03-17] MEDS ORDERED: PROPOFOL 10 MG/ML, 20ML ONE (09:44)
[2018-03-17] MEDS: INSULIN GLARGINE 100 UNITS/ML, PEN SQ-INSULIN SCH (12:51)
[2018-03-17] MEDS: FAMOTIDINE 20 MG TABLET PO SCH ×2 (12:59→21:35)
[2018-03-17] MEDS: METOLAZONE 5 MG TABLET PO SCH (12:59)
[2018-03-17] MEDS: LISINOPRIL 20 MG TABLET PO SCH (12:59)
[2018-03-17] MEDS: LIDODERM 5% PATCH TD SCH (13:00)
[2018-03-17] MEDS: ENOXAPARIN 40 MG/0.4 ML SQ SCH (13:00)
[2018-03-17] MEDS: CLOPIDOGREL 75 MG TABLET PO SCH (13:00)
[2018-03-17] MEDS: ACETAMINOPHEN 325 MG TABLET PO PRN (15:20)
[2018-03-17] MEDS: ATORVASTATIN 80 MG TABLET PO SCH (21:35)
[2018-03-17] MEDS: CYANOCOBALAMIN 1,000 MCG TABLET PO SCH (21:35)
[2018-03-18] MEDS: INSULIN LISPRO 100 UNITS/ML, PEN SQ-INSULIN SCH ×4 (00:08→17:33)
[2018-03-18] MEDS: HYDROcodone/APAP 5/325 TABLET PO PRN ×4 (01:16→20:50)
[2018-03-18] MEDS: ALBUTEROL SULFATE 2.5 MG/3 ML INLINE SCH ×6 (02:15→22:38)
[2018-03-18 04:00] VITALS: BP 98/60
[2018-03-18 04:49] LABS: BASOPHILS # (AUTO) 0.05 x10^3/uL (0-0.1); BASOPHILS % (AUTO) 0 % (0-1); EOSINOPHILS # (AUTO) 0.74 x10^3/uL (0-0.4); EOSINOPHILS % (AUTO) 5 % (1-7); LYMPHOCYTES # (AUTO) 1.94 x10^3/uL (1-3.4); LYMPHOCYTES % (AUTO) 14 % (22-44); MD NO; MEAN CORPUSCULAR HGB CONC 34.3 g/dL (33.2-36.2); MEAN CORPUSCULAR VOLUME 93.3 fL (81-97); MEAN PLATELET VOLUME 7.9 fL (7.4-10.4); MONOCYTES % (AUTO) 10 % (2-9); NEUTROPHILS # (AUTO) 9.57 x10^3/uL (1.8-6.8); NEUTROPHILS % (AUTO) 70 % (42-75); PLATELET COUNT 350 x10^3/uL (130-400); RED BLOOD COUNT 3.77 x10^6/uL (4.38-5.82); RED CELL DISTRIBUTION WIDTH 14.7 % (9.4-14.8)
[2018-03-18 04:52] LABS: ANION GAP 7 mmol/L (5-15); CALCIUM 8.6 mg/dL (8.5-10.1); CHLORIDE 94 mmol/L (98-107); CREATININE 0.59 mg/dL (0.7-1.3); TRIGLYCERIDES 90 mg/dL (50-200)
[2018-03-18] MEDS: ASPIRIN 81 MG TABLET CHEW PO SCH (06:34)
[2018-03-18] MEDS ORDERED: MAGNESIUM SULFATE PMX 2GM/50ML 50 ML IV ONE (08:00)
[2018-03-18] MEDS: metFORMIN 500 MG TABLET PO SCH ×2 (08:18→17:32)
[2018-03-18] MEDS: METOLAZONE 5 MG TABLET PO SCH (08:19)
[2018-03-18] MEDS: CLOPIDOGREL 75 MG TABLET PO SCH (08:19)
[2018-03-18] MEDS: LISINOPRIL 20 MG TABLET PO SCH (08:19)
[2018-03-18] MEDS: FAMOTIDINE 20 MG TABLET PO SCH ×2 (08:19→20:50)
[2018-03-18] MEDS: LIDODERM 5% PATCH TD SCH (08:20)
[2018-03-18] MEDS ORDERED: IMMUNE GLOB (GAMUNEX) 10GM/100ML IV ONE (09:30)
[2018-03-18] MEDS: IMMUNE GLOBULIN IV SCH (10:06)
[2018-03-18] MEDS: ENOXAPARIN 40 MG/0.4 ML SQ SCH (12:42)
[2018-03-18] MEDS: INSULIN GLARGINE 100 UNITS/ML, PEN SQ-INSULIN SCH (12:45)
[2018-03-18] MEDS: ATORVASTATIN 80 MG TABLET PO SCH (20:50)
[2018-03-18] MEDS: CYANOCOBALAMIN 1,000 MCG TABLET PO SCH (20:50)
[2018-03-19] MEDS: INSULIN LISPRO 100 UNITS/ML, PEN SQ-INSULIN SCH ×4 (00:30→17:45)
[2018-03-19] MEDS: HYDROcodone/APAP 5/325 TABLET PO PRN ×4 (01:32→19:04)
[2018-03-19] MEDS: ALBUTEROL SULFATE 2.5 MG/3 ML INLINE SCH ×6 (02:38→22:25)
[2018-03-19 03:36] LABS: BASOPHILS # (AUTO) 0.06 x10^3/uL (0-0.1); BASOPHILS % (AUTO) 0 % (0-1); EOSINOPHILS # (AUTO) 0.73 x10^3/uL (0-0.4); EOSINOPHILS % (AUTO) 5 % (1-7); LYMPHOCYTES # (AUTO) 1.25 x10^3/uL (1-3.4); LYMPHOCYTES % (AUTO) 9 % (22-44); MD NO; MEAN CORPUSCULAR HEMOGLOBIN 32.7 pg (27.5-34.5); MEAN CORPUSCULAR VOLUME 93.5 fL (81-97); MEAN PLATELET VOLUME 7.8 fL (7.4-10.4); MONOCYTES # (AUTO) 1.39 x10^3/uL (0.2-0.8); MONOCYTES % (AUTO) 10 % (2-9); NEUTROPHILS # (AUTO) 11.02 x10^3/uL (1.8-6.8); NEUTROPHILS % (AUTO) 76 % (42-75); PLATELET COUNT 342 x10^3/uL (130-400); RED CELL DISTRIBUTION WIDTH 14.9 % (9.4-14.8)
[2018-03-19 03:46] LABS: CHLORIDE 92 mmol/L (98-107)
[2018-03-19 03:47] LABS: ANION GAP 8 mmol/L (5-15); CALCIUM 8.7 mg/dL (8.5-10.1)
[2018-03-19 03:48] LABS: CREATININE 0.71 mg/dL (0.7-1.3)
[2018-03-19 04:00] VITALS: BP 112/72
[2018-03-19] MEDS: ASPIRIN 81 MG TABLET CHEW PO SCH (06:21)
[2018-03-19] MEDS ORDERED: MAGNESIUM SULFATE PMX 2GM/50ML 50 ML IV ONE (08:00)
[2018-03-19] MEDS: CLOPIDOGREL 75 MG TABLET PO SCH (09:00)
[2018-03-19] MEDS: FAMOTIDINE 20 MG TABLET PO SCH ×2 (09:00→21:06)
[2018-03-19] MEDS: metFORMIN 500 MG TABLET PO SCH ×2 (09:00→17:45)
[2018-03-19] MEDS: LISINOPRIL 20 MG TABLET PO SCH (09:00)
[2018-03-19] MEDS: LIDODERM 5% PATCH TD SCH (09:01)
[2018-03-19] MEDS: IMMUNE GLOBULIN IV SCH (10:07)
[2018-03-19] MEDS: INSULIN GLARGINE 100 UNITS/ML, PEN SQ-INSULIN SCH (11:28)
[2018-03-19] MEDS: ENOXAPARIN 40 MG/0.4 ML SQ SCH (14:06)
[2018-03-19] MEDS: ATORVASTATIN 80 MG TABLET PO SCH (21:06)
[2018-03-19] MEDS: CYANOCOBALAMIN 1,000 MCG TABLET PO SCH (21:06)
[2018-03-19] MEDS: hydrOXyzine 10 MG/5 ML ORAL SOL PO PRN (22:41)
[2018-03-19] MEDS: LIDOCAINE-MPF 1%, 2ML ENDO PRN (23:22)
[2018-03-20] MEDS: HYDROcodone/APAP 5/325 TABLET PO PRN ×2 (00:28→13:35)
[2018-03-20] MEDS: INSULIN LISPRO 100 UNITS/ML, PEN SQ-INSULIN SCH ×4 (00:48→18:13)
[2018-03-20] MEDS: ALBUTEROL SULFATE 2.5 MG/3 ML INLINE SCH ×6 (02:49→23:00)
[2018-03-20 04:00] VITALS: BP 101/62
[2018-03-20 04:27] LABS: BASOPHILS # (AUTO) 0.08 x10^3/uL (0-0.1); BASOPHILS % (AUTO) 1 % (0-1); EOSINOPHILS # (AUTO) 0.96 x10^3/uL (0-0.4); EOSINOPHILS % (AUTO) 10 % (1-7); LYMPHOCYTES % (AUTO) 11 % (22-44); MD NO; MEAN CORPUSCULAR HEMOGLOBIN 32.4 pg (27.5-34.5); MEAN CORPUSCULAR HGB CONC 34.9 g/dL (33.2-36.2); MEAN CORPUSCULAR VOLUME 92.7 fL (81-97); MEAN PLATELET VOLUME 7.9 fL (7.4-10.4); MONOCYTES # (AUTO) 1.28 x10^3/uL (0.2-0.8); MONOCYTES % (AUTO) 14 % (2-9); NEUTROPHILS # (AUTO) 5.95 x10^3/uL (1.8-6.8); NEUTROPHILS % (AUTO) 64 % (42-75); PLATELET COUNT 331 x10^3/uL (130-400); RED BLOOD COUNT 3.78 x10^6/uL (4.38-5.82); RED CELL DISTRIBUTION WIDTH 14.6 % (9.4-14.8)
[2018-03-20 04:36] LABS: ANION GAP 6 mmol/L (5-15); CALCIUM 8.7 mg/dL (8.5-10.1); CHLORIDE 92 mmol/L (98-107); CREATININE 0.71 mg/dL (0.7-1.3)
[2018-03-20] MEDS: ASPIRIN 81 MG TABLET CHEW PO SCH (05:55)
[2018-03-20] MEDS: CLOPIDOGREL 75 MG TABLET PO SCH (07:35)
[2018-03-20] MEDS: FAMOTIDINE 20 MG TABLET PO SCH ×2 (07:36→20:37)
[2018-03-20] MEDS: metFORMIN 500 MG TABLET PO SCH ×2 (07:36→18:13)
[2018-03-20] MEDS: LISINOPRIL 20 MG TABLET PO SCH (07:36)
[2018-03-20] MEDS: SODIUM CHLORIDE 0.9% 1,000 ML IV SCH (07:49)
[2018-03-20] MEDS: LIDODERM 5% PATCH TD SCH (08:37)
[2018-03-20] MEDS: IMMUNE GLOBULIN IV SCH (09:17)
[2018-03-20] MEDS: INSULIN GLARGINE 100 UNITS/ML, PEN SQ-INSULIN SCH (11:16)
[2018-03-20] MEDS: ENOXAPARIN 40 MG/0.4 ML SQ SCH (12:39)
[2018-03-20] MEDS: ATORVASTATIN 80 MG TABLET PO SCH (20:37)
[2018-03-20] MEDS: CYANOCOBALAMIN 1,000 MCG TABLET PO SCH (20:38)
[2018-03-20] MEDS: hydrOXyzine 10 MG/5 ML ORAL SOL PO PRN (21:24)
[2018-03-21] MEDS: INSULIN LISPRO 100 UNITS/ML, PEN SQ-INSULIN SCH ×5 (00:30→23:03)
[2018-03-21] MEDS: ALBUTEROL SULFATE 2.5 MG/3 ML INLINE SCH ×5 (02:53→23:21)
[2018-03-21 04:00] VITALS: BP 108/70
[2018-03-21 04:55] LABS: ANION GAP 8 mmol/L (5-15); CALCIUM 8.5 mg/dL (8.5-10.1); CHLORIDE 91 mmol/L (98-107)
[2018-03-21 04:56] LABS: CREATININE 0.72 mg/dL (0.7-1.3)
[2018-03-21 04:57] LABS: MEAN CORPUSCULAR HEMOGLOBIN 32.6 pg (27.5-34.5); MEAN CORPUSCULAR HGB CONC 35.4 g/dL (33.2-36.2); MEAN CORPUSCULAR VOLUME 91.9 fL (81-97); MEAN PLATELET VOLUME 7.8 fL (7.4-10.4); PLATELET COUNT 289 x10^3/uL (130-400); RED BLOOD COUNT 3.69 x10^6/uL (4.38-5.82); RED CELL DISTRIBUTION WIDTH 15.1 % (9.4-14.8)
[2018-03-21] MEDS ORDERED: MAGNESIUM SULFATE PMX 2GM/50ML 50 ML IV ONE ×2 (05:30→08:30)
[2018-03-21 05:44] LABS: MD YES
[2018-03-21 05:47] LABS: BANDS%(MANUAL) 4 % (0-7); BASOS#(MANUAL) 0.08 x10^3/uL (0-0.1); BASOS% (MANUAL) 1 % (0-1); EOS#(MANUAL) 0.61 x10^3/uL (0.0-0.4); EOS% (MANUAL) 8 % (1-7); LYMPH#(MANUAL) 1.06 x10^3/uL (1-3.4); LYMPHS% (MANUAL) 14 % (22-44); MONOS#(MANUAL) 0.76 x10^3/uL (0.3-2.7); MONOS% (MANUAL) 10 % (2-9); SEG#(MANUAL) 4.79 x10^3/uL (1.8-6.8); SEGS% (MANUAL) 63 % (42-75)
[2018-03-21 05:48] LABS: <PLATELET ESTIMATE> ADEQUATE; <PLT MORPHOLOGY> NORMAL PLT MORPH; <RBC MORPHOLOGY> NORMAL
[2018-03-21] MEDS: ASPIRIN 81 MG TABLET CHEW PO SCH (05:56)
[2018-03-21] MEDS ORDERED: MAGNESIUM SULFATE PMX 4GM/100M 100 ML IV ONE (07:30)
[2018-03-21] MEDS: CLOPIDOGREL 75 MG TABLET PO SCH (08:40)
[2018-03-21] MEDS: DOCUSATE 50 MG/5 ML, 10ML UDC PO PRN (08:40)
[2018-03-21] MEDS: SERTRALINE 50MG TABLET PO SCH (08:40)
[2018-03-21] MEDS: HYDROcodone/APAP 5/325 TABLET PO PRN ×3 (08:41→23:06)
[2018-03-21] MEDS: metFORMIN 500 MG TABLET PO SCH ×2 (08:41→17:13)
[2018-03-21] MEDS: FAMOTIDINE 20 MG TABLET PO SCH ×2 (08:41→20:50)
[2018-03-21] MEDS: LIDODERM 5% PATCH TD SCH (09:49)
[2018-03-21] MEDS: IMMUNE GLOBULIN IV SCH (09:49)
[2018-03-21] MEDS ORDERED: INSULIN GLARGINE 100 UNITS/ML, PEN SQ-INSULIN SCH (11:00)
[2018-03-21] MEDS: ENOXAPARIN 40 MG/0.4 ML SQ SCH (11:46)
[2018-03-21] MEDS: SODIUM CHLORIDE 0.9% 1,000 ML IV SCH (11:48)
[2018-03-21] MEDS ORDERED: TAMSULOSIN 0.4 MG CAP.ER.24H ONE (17:20)
[2018-03-21] MEDS ORDERED: TAMSULOSIN 0.4 MG CAP.ER.24H PO ONE (17:30)
[2018-03-21] MEDS: CYANOCOBALAMIN 1,000 MCG TABLET PO SCH (20:50)
[2018-03-21] MEDS: ATORVASTATIN 80 MG TABLET PO SCH (20:50)
[2018-03-21] MEDS: hydrOXyzine 10 MG/5 ML ORAL SOL PO PRN (23:06)
[2018-03-22] MEDS: ALBUTEROL SULFATE 2.5 MG/3 ML INLINE SCH ×6 (02:34→23:00)
[2018-03-22 04:00] VITALS: BP 126/74
[2018-03-22 04:42] LABS: BASOPHILS # (AUTO) 0.05 x10^3/uL (0-0.1); BASOPHILS % (AUTO) 1 % (0-1); EOSINOPHILS # (AUTO) 0.94 x10^3/uL (0-0.4); EOSINOPHILS % (AUTO) 12 % (1-7); LYMPHOCYTES # (AUTO) 1.31 x10^3/uL (1-3.4); LYMPHOCYTES % (AUTO) 17 % (22-44); MD NO; MEAN CORPUSCULAR HEMOGLOBIN 32.8 pg (27.5-34.5); MEAN CORPUSCULAR HGB CONC 35.4 g/dL (33.2-36.2); MEAN CORPUSCULAR VOLUME 92.8 fL (81-97); MEAN PLATELET VOLUME 7.8 fL (7.4-10.4); MONOCYTES # (AUTO) 1.43 x10^3/uL (0.2-0.8); MONOCYTES % (AUTO) 18 % (2-9); NEUTROPHILS # (AUTO) 4.08 x10^3/uL (1.8-6.8); NEUTROPHILS % (AUTO) 52 % (42-75); PLATELET COUNT 290 x10^3/uL (130-400); RED BLOOD COUNT 3.73 x10^6/uL (4.38-5.82)
[2018-03-22 04:52] LABS: ANION GAP 8 mmol/L (5-15); CALCIUM 8.4 mg/dL (8.5-10.1); CHLORIDE 93 mmol/L (98-107); CREATININE 0.67 mg/dL (0.7-1.3)
[2018-03-22] MEDS: INSULIN LISPRO 100 UNITS/ML, PEN SQ-INSULIN SCH ×4 (05:47→22:11)
[2018-03-22] MEDS: ASPIRIN 81 MG TABLET CHEW PO SCH (05:55)
[2018-03-22] MEDS ORDERED: MAGNESIUM SULFATE PMX 2GM/50ML 50 ML IV ONE (07:30)
[2018-03-22] MEDS: SERTRALINE 50MG TABLET PO SCH (08:07)
[2018-03-22] MEDS: FAMOTIDINE 20 MG TABLET PO SCH ×2 (08:07→20:13)
[2018-03-22] MEDS: metFORMIN 500 MG TABLET PO SCH ×2 (08:07→15:54)
[2018-03-22] MEDS: CLOPIDOGREL 75 MG TABLET PO SCH (08:07)
[2018-03-22] MEDS: ACETAMINOPHEN 325 MG TABLET PO PRN ×2 (08:13→13:06)
[2018-03-22] MEDS: TAMSULOSIN 0.4 MG CAP.ER.24H PO SCH (08:14)
[2018-03-22] MEDS: SODIUM CHLORIDE 0.9% 1,000 ML IV SCH (10:31)
[2018-03-22] MEDS: LIDODERM 5% PATCH TD SCH (10:32)
[2018-03-22] MEDS: IMMUNE GLOBULIN IV SCH (10:58)
[2018-03-22] MEDS: INSULIN GLARGINE 100 UNITS/ML, PEN SQ-INSULIN SCH (11:05)
[2018-03-22] MEDS: ENOXAPARIN 40 MG/0.4 ML SQ SCH (11:14)
[2018-03-22] MEDS: ATORVASTATIN 80 MG TABLET PO SCH (20:13)
[2018-03-22] MEDS: HYDROcodone/APAP 5/325 TABLET PO PRN (20:14)
[2018-03-22] MEDS: hydrOXyzine 10 MG/5 ML ORAL SOL PO PRN (20:14)
[2018-03-22] MEDS: CYANOCOBALAMIN 1,000 MCG TABLET PO SCH (21:00)
[2018-03-23] MEDS: ALBUTEROL SULFATE 2.5 MG/3 ML INLINE SCH ×4 (02:57→14:07)
[2018-03-23 04:00] VITALS: BP 128/75
[2018-03-23] MEDS: INSULIN LISPRO 100 UNITS/ML, PEN SQ-INSULIN SCH ×4 (05:00→22:28)
[2018-03-23] MEDS: SODIUM CHLORIDE 0.9% 1,000 ML IV SCH ×2 (05:30→18:45)
[2018-03-23 05:58] LABS: BASOPHILS # (AUTO) 0.06 x10^3/uL (0-0.1); BASOPHILS % (AUTO) 1 % (0-1); EOSINOPHILS # (AUTO) 0.68 x10^3/uL (0-0.4); EOSINOPHILS % (AUTO) 8 % (1-7); LYMPHOCYTES # (AUTO) 1.14 x10^3/uL (1-3.4); LYMPHOCYTES % (AUTO) 14 % (22-44); MD NO; MEAN CORPUSCULAR HEMOGLOBIN 32.2 pg (27.5-34.5); MEAN CORPUSCULAR HGB CONC 34.9 g/dL (33.2-36.2); MEAN CORPUSCULAR VOLUME 92.3 fL (81-97); MEAN PLATELET VOLUME 8.1 fL (7.4-10.4); MONOCYTES # (AUTO) 1.26 x10^3/uL (0.2-0.8); MONOCYTES % (AUTO) 15 % (2-9); NEUTROPHILS # (AUTO) 5.03 x10^3/uL (1.8-6.8); NEUTROPHILS % (AUTO) 62 % (42-75); PLATELET COUNT 288 x10^3/uL (130-400); RED CELL DISTRIBUTION WIDTH 15.3 % (9.4-14.8)
[2018-03-23 06:02] LABS: ANION GAP 7 mmol/L (5-15); CALCIUM 8.7 mg/dL (8.5-10.1); CHLORIDE 92 mmol/L (98-107); CREATININE 0.61 mg/dL (0.7-1.3)
[2018-03-23] MEDS: DOCUSATE 50 MG/5 ML, 10ML UDC PO PRN ×2 (06:16→20:41)
[2018-03-23] MEDS: ASPIRIN 81 MG TABLET CHEW PO SCH (06:16)
[2018-03-23] MEDS ORDERED: MAGNESIUM SULFATE PMX 2GM/50ML 50 ML IV ONE (07:30)
[2018-03-23] MEDS ORDERED: LACTULOSE 20 GM/30 ML UDC PO PRN (08:30)
[2018-03-23] MEDS: DOCUSATE 100 MG CAPSULE PO SCH (09:00)
[2018-03-23] MEDS: FAMOTIDINE 20 MG TABLET PO SCH ×2 (09:52→20:41)
[2018-03-23] MEDS: DOCUSATE 50 MG/5 ML, 10ML UDC NG SCH (09:52)
[2018-03-23] MEDS: TAMSULOSIN 0.4 MG CAP.ER.24H PO SCH (09:53)
[2018-03-23] MEDS: CLOPIDOGREL 75 MG TABLET PO SCH (09:53)
[2018-03-23] MEDS: BISACODYL 10 MG SUPP PR PRN ×2 (09:53→22:00)
[2018-03-23] MEDS: metFORMIN 500 MG TABLET PO SCH ×2 (09:53→17:38)
[2018-03-23] MEDS: SERTRALINE 50MG TABLET PO SCH (09:54)
[2018-03-23] MEDS: LIDODERM 5% PATCH TD SCH (10:01)
[2018-03-23] MEDS: ACETAMINOPHEN 325 MG TABLET PO PRN (14:15)
[2018-03-23] MEDS: ENOXAPARIN 40 MG/0.4 ML SQ SCH (14:17)
[2018-03-23] MEDS: INSULIN GLARGINE 100 UNITS/ML, PEN SQ-INSULIN SCH (14:18)
[2018-03-23] MEDS: LACTULOSE 20 GM/30 ML UDC PO PRN (17:39)
[2018-03-23] MEDS: ALBUTEROL SULFATE 2.5 MG/3 ML IPPB SCH (19:42)
[2018-03-23] MEDS: CYANOCOBALAMIN 1,000 MCG TABLET PO SCH (20:40)
[2018-03-23] MEDS: HYDROcodone/APAP 5/325 TABLET PO PRN ×2 (20:40→22:23)
[2018-03-23] MEDS: ATORVASTATIN 80 MG TABLET PO SCH (20:40)
[2018-03-23] MEDS: hydrOXyzine 10 MG/5 ML ORAL SOL PO PRN (20:41)
[2018-03-23] MEDS: SENNA/DOCUSATE TABLET PO SCH (21:00)
[2018-03-23] MEDS: SENNOSIDES 8.8 MG/5 ML ORAL SOL NG SCH (21:10)
[2018-03-24 04:00] VITALS: BP 118/76
[2018-03-24] MEDS: INSULIN LISPRO 100 UNITS/ML, PEN SQ-INSULIN SCH ×4 (04:58→22:52)
[2018-03-24] MEDS: ASPIRIN 81 MG TABLET CHEW PO SCH (04:59)
[2018-03-24] MEDS: BISACODYL 10 MG SUPP PR PRN ×2 (05:03→07:49)
[2018-03-24 05:04] LABS: BASOPHILS # (AUTO) 0.04 x10^3/uL (0-0.1); BASOPHILS % (AUTO) 1 % (0-1); EOSINOPHILS # (AUTO) 0.82 x10^3/uL (0-0.4); EOSINOPHILS % (AUTO) 10 % (1-7); LYMPHOCYTES # (AUTO) 1.46 x10^3/uL (1-3.4); LYMPHOCYTES % (AUTO) 18 % (22-44); MD NO; MEAN CORPUSCULAR HEMOGLOBIN 32.6 pg (27.5-34.5); MEAN CORPUSCULAR HGB CONC 35.4 g/dL (33.2-36.2); MEAN CORPUSCULAR VOLUME 91.9 fL (81-97); MONOCYTES # (AUTO) 1.24 x10^3/uL (0.2-0.8); MONOCYTES % (AUTO) 15 % (2-9); NEUTROPHILS # (AUTO) 4.56 x10^3/uL (1.8-6.8); NEUTROPHILS % (AUTO) 56 % (42-75); PLATELET COUNT 277 x10^3/uL (130-400); RED BLOOD COUNT 3.64 x10^6/uL (4.38-5.82); RED CELL DISTRIBUTION WIDTH 14.9 % (9.4-14.8)
[2018-03-24 05:12] LABS: ANION GAP 6 mmol/L (5-15); CALCIUM 8.2 mg/dL (8.5-10.1); CHLORIDE 97 mmol/L (98-107)
[2018-03-24 05:13] LABS: CREATININE 0.57 mg/dL (0.7-1.3)
[2018-03-24] MEDS: ALBUTEROL SULFATE 2.5 MG/3 ML IPPB SCH ×2 (07:00→12:17)
[2018-03-24] MEDS ORDERED: PINK LADY ENEMA 490 ML BOTTLE PR PRN (08:30)
[2018-03-24] MEDS ORDERED: MAGNESIUM SULFATE PMX 2GM/50ML 50 ML IV ONE (08:30)
[2018-03-24] MEDS: FAMOTIDINE 20 MG TABLET PO SCH ×2 (08:43→21:38)
[2018-03-24] MEDS: SERTRALINE 50MG TABLET PO SCH (08:44)
[2018-03-24] MEDS: metFORMIN 500 MG TABLET PO SCH ×2 (08:44→17:44)
[2018-03-24] MEDS: DOCUSATE 100 MG CAPSULE PO SCH (08:45)
[2018-03-24] MEDS: DOCUSATE 50 MG/5 ML, 10ML UDC NG SCH (08:45)
[2018-03-24] MEDS: CLOPIDOGREL 75 MG TABLET PO SCH (08:50)
[2018-03-24] MEDS: TAMSULOSIN 0.4 MG CAP.ER.24H PO SCH (08:50)
[2018-03-24] MEDS: ACETAMINOPHEN 325 MG TABLET PO PRN ×2 (09:06→18:30)
[2018-03-24] MEDS: INSULIN GLARGINE 100 UNITS/ML, PEN SQ-INSULIN SCH (11:29)
[2018-03-24] MEDS: ENOXAPARIN 40 MG/0.4 ML SQ SCH (13:35)
[2018-03-24] MEDS: LIDODERM 5% PATCH TD SCH (13:36)
[2018-03-24] MEDS ORDERED: ALBUTEROL SULFATE 2.5 MG/3 ML IPPB PRN (14:00)
[2018-03-24] MEDS: SODIUM CHLORIDE 0.9% 1,000 ML IV SCH (17:44)
[2018-03-24] MEDS ORDERED: NOREPINEPHRINE 1 MG/ML, 4ML ONE (20:01)
[2018-03-24] MEDS: LIDOCAINE-MPF 1%, 2ML ENDO PRN (20:50)
[2018-03-24] MEDS: SENNA/DOCUSATE TABLET PO SCH (21:38)
[2018-03-24] MEDS: SENNOSIDES 8.8 MG/5 ML ORAL SOL NG SCH (21:38)
[2018-03-24] MEDS: hydrOXyzine 10 MG/5 ML ORAL SOL PO PRN (21:38)
[2018-03-24] MEDS: ATORVASTATIN 80 MG TABLET PO SCH (21:39)
[2018-03-24] MEDS: HYDROcodone/APAP 5/325 TABLET PO PRN ×2 (21:39→22:45)
[2018-03-24] MEDS: CYANOCOBALAMIN 1,000 MCG TABLET PO SCH (21:41)
[2018-03-25 04:06] VITALS: BP 118/71
[2018-03-25 04:27] LABS: BASOPHILS # (AUTO) 0.02 x10^3/uL (0-0.1); BASOPHILS % (AUTO) 0 % (0-1); EOSINOPHILS # (AUTO) 0.97 x10^3/uL (0-0.4); EOSINOPHILS % (AUTO) 9 % (1-7); LYMPHOCYTES # (AUTO) 1.79 x10^3/uL (1-3.4); LYMPHOCYTES % (AUTO) 17 % (22-44); MD NO; MEAN CORPUSCULAR HEMOGLOBIN 31.5 pg (27.5-34.5); MEAN CORPUSCULAR HGB CONC 34.3 g/dL (33.2-36.2); MEAN PLATELET VOLUME 7.8 fL (7.4-10.4); MONOCYTES # (AUTO) 1.39 x10^3/uL (0.2-0.8); MONOCYTES % (AUTO) 13 % (2-9); NEUTROPHILS # (AUTO) 6.28 x10^3/uL (1.8-6.8); NEUTROPHILS % (AUTO) 60 % (42-75); PLATELET COUNT 283 x10^3/uL (130-400); RED BLOOD COUNT 3.57 x10^6/uL (4.38-5.82)
[2018-03-25 04:32] LABS: ANION GAP 6 mmol/L (5-15); CALCIUM 8.3 mg/dL (8.5-10.1); CHLORIDE 96 mmol/L (98-107); CREATININE 0.58 mg/dL (0.7-1.3)
[2018-03-25] MEDS: INSULIN LISPRO 100 UNITS/ML, PEN SQ-INSULIN SCH ×3 (04:48→19:51)
[2018-03-25] MEDS: ASPIRIN 81 MG TABLET CHEW PO SCH (04:52)
[2018-03-25] MEDS ORDERED: FUROSEMIDE 20 MG/2 ML IV ONE (08:30)
[2018-03-25] MEDS ORDERED: MAGNESIUM SULFATE 3 GM in SODIUM CHLORIDE 0.9% 100 ML IV ONE (08:30)
[2018-03-25] MEDS: DOCUSATE 50 MG/5 ML, 10ML UDC NG SCH (09:29)
[2018-03-25] MEDS: FAMOTIDINE 20 MG TABLET PO SCH ×2 (09:31→19:58)
[2018-03-25] MEDS: CLOPIDOGREL 75 MG TABLET PO SCH (09:31)
[2018-03-25] MEDS: SERTRALINE 50MG TABLET PO SCH (09:31)
[2018-03-25] MEDS: TAMSULOSIN 0.4 MG CAP.ER.24H PO SCH (09:31)
[2018-03-25] MEDS: metFORMIN 500 MG TABLET PO SCH ×2 (09:32→17:40)
[2018-03-25] MEDS: ENOXAPARIN 40 MG/0.4 ML SQ SCH (09:46)
[2018-03-25] MEDS: LIDODERM 5% PATCH TD SCH (10:15)
[2018-03-25] MEDS: ACETAMINOPHEN 325 MG TABLET PO PRN ×2 (10:57→17:40)
[2018-03-25] MEDS: INSULIN GLARGINE 100 UNITS/ML, PEN SQ-INSULIN SCH (13:06)
[2018-03-25] MEDS: SODIUM CHLORIDE 0.9% 1,000 ML IV SCH (16:25)
[2018-03-25] MEDS: ATORVASTATIN 80 MG TABLET PO SCH (19:57)
[2018-03-25] MEDS: CYANOCOBALAMIN 1,000 MCG TABLET PO SCH (19:58)
[2018-03-25] MEDS: HYDROcodone/APAP 5/325 TABLET PO PRN (20:45)
[2018-03-26] MEDS: INSULIN LISPRO 100 UNITS/ML, PEN SQ-INSULIN SCH ×5 (00:23→22:37)
[2018-03-26] MEDS: HYDROcodone/APAP 5/325 TABLET PO PRN ×3 (03:50→21:35)
[2018-03-26 04:17] VITALS: BP 143/81
[2018-03-26 04:20] LABS: BASOPHILS # (AUTO) 0.06 x10^3/uL (0-0.1); BASOPHILS % (AUTO) 1 % (0-1); EOSINOPHILS # (AUTO) 1.09 x10^3/uL (0-0.4); EOSINOPHILS % (AUTO) 10 % (1-7); LYMPHOCYTES # (AUTO) 1.88 x10^3/uL (1-3.4); LYMPHOCYTES % (AUTO) 17 % (22-44); MD NO; MEAN CORPUSCULAR HEMOGLOBIN 32.3 pg (27.5-34.5); MEAN CORPUSCULAR HGB CONC 34.7 g/dL (33.2-36.2); MEAN CORPUSCULAR VOLUME 92.9 fL (81-97); MEAN PLATELET VOLUME 7.7 fL (7.4-10.4); MONOCYTES % (AUTO) 11 % (2-9); NEUTROPHILS # (AUTO) 7.09 x10^3/uL (1.8-6.8); NEUTROPHILS % (AUTO) 62 % (42-75); PLATELET COUNT 285 x10^3/uL (130-400); RED BLOOD COUNT 3.71 x10^6/uL (4.38-5.82); RED CELL DISTRIBUTION WIDTH 15.1 % (9.4-14.8)
[2018-03-26 04:28] LABS: ANION GAP 9 mmol/L (5-15); CALCIUM 8.2 mg/dL (8.5-10.1); CHLORIDE 96 mmol/L (98-107)
[2018-03-26 04:29] LABS: CREATININE 0.57 mg/dL (0.7-1.3)
[2018-03-26] MEDS: ASPIRIN 81 MG TABLET CHEW PO SCH (06:05)
[2018-03-26] MEDS: DOCUSATE 50 MG/5 ML, 10ML UDC NG SCH (08:39)
[2018-03-26] MEDS: metFORMIN 500 MG TABLET PO SCH ×2 (08:39→16:13)
[2018-03-26] MEDS: CLOPIDOGREL 75 MG TABLET PO SCH (08:39)
[2018-03-26] MEDS: TAMSULOSIN 0.4 MG CAP.ER.24H PO SCH (08:39)
[2018-03-26] MEDS: FAMOTIDINE 20 MG TABLET PO SCH ×2 (08:39→19:27)
[2018-03-26] MEDS: SERTRALINE 50MG TABLET PO SCH (08:39)
[2018-03-26] MEDS: LIDODERM 5% PATCH TD SCH (08:40)
[2018-03-26] MEDS: ENOXAPARIN 40 MG/0.4 ML SQ SCH (10:57)
[2018-03-26] MEDS: INSULIN GLARGINE 100 UNITS/ML, PEN SQ-INSULIN SCH (10:57)
[2018-03-26] MEDS: SODIUM CHLORIDE 0.9% 1,000 ML IV SCH (12:16)
[2018-03-26] MEDS: ACETAMINOPHEN 325 MG TABLET PO PRN (12:16)
[2018-03-26] MEDS: ATORVASTATIN 80 MG TABLET PO SCH (19:28)
[2018-03-26] MEDS: CYANOCOBALAMIN 1,000 MCG TABLET PO SCH (19:28)
[2018-03-26] MEDS: hydrOXyzine 10 MG/5 ML ORAL SOL PO PRN (22:54)
[2018-03-27 04:00] VITALS: BP 120/62
[2018-03-27 04:21] LABS: BASOPHILS # (AUTO) 0.04 x10^3/uL (0-0.1); BASOPHILS % (AUTO) 0 % (0-1); EOSINOPHILS # (AUTO) 1.09 x10^3/uL (0-0.4); EOSINOPHILS % (AUTO) 10 % (1-7); LYMPHOCYTES % (AUTO) 18 % (22-44); MD NO; MEAN CORPUSCULAR HEMOGLOBIN 31.5 pg (27.5-34.5); MEAN CORPUSCULAR HGB CONC 34.5 g/dL (33.2-36.2); MEAN CORPUSCULAR VOLUME 91.4 fL (81-97); MEAN PLATELET VOLUME 7.4 fL (7.4-10.4); MONOCYTES # (AUTO) 1.14 x10^3/uL (0.2-0.8); MONOCYTES % (AUTO) 11 % (2-9); NEUTROPHILS # (AUTO) 6.64 x10^3/uL (1.8-6.8); NEUTROPHILS % (AUTO) 62 % (42-75); PLATELET COUNT 289 x10^3/uL (130-400); RED BLOOD COUNT 3.63 x10^6/uL (4.38-5.82); RED CELL DISTRIBUTION WIDTH 15.1 % (9.4-14.8)
[2018-03-27 04:33] LABS: ANION GAP 5 mmol/L (5-15); CALCIUM 8.4 mg/dL (8.5-10.1); CHLORIDE 95 mmol/L (98-107); CREATININE 0.57 mg/dL (0.7-1.3)
[2018-03-27] MEDS: HYDROcodone/APAP 5/325 TABLET PO PRN ×2 (04:34→20:14)
[2018-03-27] MEDS: INSULIN LISPRO 100 UNITS/ML, PEN SQ-INSULIN SCH ×4 (04:48→23:00)
[2018-03-27] MEDS: ASPIRIN 81 MG TABLET CHEW PO SCH (06:08)
[2018-03-27 06:21] VITALS: BP 127/72
[2018-03-27] MEDS: CLOPIDOGREL 75 MG TABLET PO SCH (08:25)
[2018-03-27] MEDS: FAMOTIDINE 20 MG TABLET PO SCH ×2 (08:25→20:14)
[2018-03-27] MEDS: SERTRALINE 50MG TABLET PO SCH (08:25)
[2018-03-27] MEDS: DOCUSATE 50 MG/5 ML, 10ML UDC NG SCH (08:25)
[2018-03-27] MEDS: TAMSULOSIN 0.4 MG CAP.ER.24H PO SCH (08:25)
[2018-03-27] MEDS: metFORMIN 500 MG TABLET PO SCH ×2 (08:25→17:08)
[2018-03-27] MEDS: LIDODERM 5% PATCH TD SCH (08:26)
[2018-03-27] MEDS: SODIUM CHLORIDE 0.9% 1,000 ML IV SCH (08:34)
[2018-03-27] MEDS: ENOXAPARIN 40 MG/0.4 ML SQ SCH (09:02)
[2018-03-27] MEDS ORDERED: FUROSEMIDE 20 MG/2 ML IV ONE (09:30)
[2018-03-27] MEDS: INSULIN GLARGINE 100 UNITS/ML, PEN SQ-INSULIN SCH (11:01)
[2018-03-27] MEDS ORDERED: MAGNESIUM SULFATE PMX 4GM/100M 100 ML IV ONE (11:30)
[2018-03-27] MEDS ORDERED: GUAIFENESIN 100 MG/5 ML, 10ML UDC ONE (14:52)
[2018-03-27] MEDS: GUAIFENESIN 100 MG/5 ML, 5ML UDC PO PRN ×2 (14:59→15:11)
[2018-03-27] MEDS: FUROSEMIDE 20 MG/2 ML IV SCH (17:09)
[2018-03-27] MEDS: ACETAMINOPHEN 325 MG TABLET PO PRN (17:23)
[2018-03-27] MEDS: ATORVASTATIN 80 MG TABLET PO SCH (20:14)
[2018-03-27] MEDS: CYANOCOBALAMIN 1,000 MCG TABLET PO SCH (20:18)
[2018-03-27] MEDS: hydrOXyzine 10 MG/5 ML ORAL SOL PO PRN (23:23)
[2018-03-28] MEDS: DIPHENHYDRAMINE 50 MG CAPSULE PO PRN (00:17)
[2018-03-28 04:00] VITALS: BP 117/53
[2018-03-28 04:16] LABS: BASOPHILS # (AUTO) 0.07 x10^3/uL (0-0.1); BASOPHILS % (AUTO) 1 % (0-1); EOSINOPHILS # (AUTO) 0.98 x10^3/uL (0-0.4); EOSINOPHILS % (AUTO) 9 % (1-7); LYMPHOCYTES % (AUTO) 18 % (22-44); MD NO; MEAN CORPUSCULAR HEMOGLOBIN 32.4 pg (27.5-34.5); MEAN CORPUSCULAR HGB CONC 34.9 g/dL (33.2-36.2); MEAN CORPUSCULAR VOLUME 92.9 fL (81-97); MEAN PLATELET VOLUME 7.5 fL (7.4-10.4); MONOCYTES # (AUTO) 1.22 x10^3/uL (0.2-0.8); MONOCYTES % (AUTO) 11 % (2-9); NEUTROPHILS # (AUTO) 6.84 x10^3/uL (1.8-6.8); NEUTROPHILS % (AUTO) 62 % (42-75); PLATELET COUNT 286 x10^3/uL (130-400); RED BLOOD COUNT 3.69 x10^6/uL (4.38-5.82); RED CELL DISTRIBUTION WIDTH 15.4 % (9.4-14.8)
[2018-03-28 04:29] LABS: ALANINE AMINOTRANSFERASE 28 U/L (12-78); ALBUMIN 2.2 g/dL (3.4-5.0); ANION GAP 5 mmol/L (5-15); CALCIUM 8.4 mg/dL (8.5-10.1); CHLORIDE 94 mmol/L (98-107); CREATININE 0.57 mg/dL (0.7-1.3)
[2018-03-28 04:31] LABS: ALKALINE PHOSPHATASE 84 U/L (45-117); BILIRUBIN,TOTAL 0.4 mg/dL (0.2-1.0); TOTAL PROTEIN 8.7 g/dL (6.4-8.2)
[2018-03-28] MEDS: INSULIN LISPRO 100 UNITS/ML, PEN SQ-INSULIN SCH ×4 (04:55→23:43)
[2018-03-28] MEDS: ASPIRIN 81 MG TABLET CHEW PO SCH (05:01)
[2018-03-28] MEDS: SODIUM CHLORIDE 0.9% 1,000 ML IV SCH (05:01)
[2018-03-28] MEDS: HYDROcodone/APAP 5/325 TABLET PO PRN ×3 (05:05→20:18)
[2018-03-28] MEDS: SERTRALINE 50MG TABLET PO SCH (08:18)
[2018-03-28] MEDS: FAMOTIDINE 20 MG TABLET PO SCH ×2 (08:18→21:01)
[2018-03-28] MEDS: FUROSEMIDE 20 MG/2 ML IV SCH ×2 (08:18→17:16)
[2018-03-28] MEDS: CLOPIDOGREL 75 MG TABLET PO SCH (08:18)
[2018-03-28] MEDS: DOCUSATE 50 MG/5 ML, 10ML UDC NG SCH (08:18)
[2018-03-28] MEDS: metFORMIN 500 MG TABLET PO SCH ×2 (08:18→17:16)
[2018-03-28] MEDS: TAMSULOSIN 0.4 MG CAP.ER.24H PO SCH (08:18)
[2018-03-28] MEDS: ENOXAPARIN 40 MG/0.4 ML SQ SCH (08:19)
[2018-03-28] MEDS: LIDODERM 5% PATCH TD SCH (08:19)
[2018-03-28] MEDS: INSULIN GLARGINE 100 UNITS/ML, PEN SQ-INSULIN SCH (11:09)
[2018-03-28] MEDS ORDERED: MICROFIBRILLAR COLLAGEN 0.5GM/PACK TP STA (16:16)
[2018-03-28] MEDS ORDERED: LIDOCAINE-MPF 1%, 5ML ONE (17:36)
[2018-03-28] MEDS: FENTANYL PF 100 MCG/2ML IVPush PRN ×2 (18:47→21:37)
[2018-03-28] MEDS: CYANOCOBALAMIN 1,000 MCG TABLET PO SCH (21:01)
[2018-03-28] MEDS: ATORVASTATIN 80 MG TABLET PO SCH (21:01)
[2018-03-28 23:34] VITALS: BP 123/76
[2018-03-29 00:02] VITALS: BP 126/75
[2018-03-29 00:20] VITALS: BP 127/76
[2018-03-29 00:41] VITALS: BP 127/74
[2018-03-29] MEDS: SODIUM CHLORIDE 0.9% 1,000 ML IV SCH ×2 (00:45→23:37)
[2018-03-29] MEDS: HYDROcodone/APAP 5/325 TABLET PO PRN (01:06)
[2018-03-29 01:07] VITALS: BP 144/82
[2018-03-29 01:21] VITALS: BP 119/68
[2018-03-29 04:00] VITALS: BP 121/63
[2018-03-29 04:22] LABS: BASOPHILS # (AUTO) 0.06 x10^3/uL (0-0.1); BASOPHILS % (AUTO) 0 % (0-1); EOSINOPHILS # (AUTO) 0.96 x10^3/uL (0-0.4); EOSINOPHILS % (AUTO) 7 % (1-7); LYMPHOCYTES # (AUTO) 1.86 x10^3/uL (1-3.4); LYMPHOCYTES % (AUTO) 14 % (22-44); MD NO; MEAN CORPUSCULAR HEMOGLOBIN 32.3 pg (27.5-34.5); MEAN CORPUSCULAR VOLUME 92.1 fL (81-97); MEAN PLATELET VOLUME 7.5 fL (7.4-10.4); MONOCYTES # (AUTO) 1.24 x10^3/uL (0.2-0.8); MONOCYTES % (AUTO) 9 % (2-9); NEUTROPHILS # (AUTO) 9.38 x10^3/uL (1.8-6.8); NEUTROPHILS % (AUTO) 70 % (42-75); PLATELET COUNT 309 x10^3/uL (130-400); RED BLOOD COUNT 3.47 x10^6/uL (4.38-5.82); RED CELL DISTRIBUTION WIDTH 15.6 % (9.4-14.8)
[2018-03-29 04:35] LABS: ANION GAP 5 mmol/L (5-15); CALCIUM 8.5 mg/dL (8.5-10.1); CHLORIDE 96 mmol/L (98-107); CREATININE 0.55 mg/dL (0.7-1.3)
[2018-03-29] MEDS: INSULIN LISPRO 100 UNITS/ML, PEN SQ-INSULIN SCH ×4 (05:57→23:27)
[2018-03-29] MEDS: ASPIRIN 81 MG TABLET CHEW PO SCH (06:06)
[2018-03-29] MEDS ORDERED: MAGNESIUM SULFATE PMX 4GM/100M 100 ML IVPB ONE (07:30)
[2018-03-29] MEDS: CLOPIDOGREL 75 MG TABLET PO SCH (09:00)
[2018-03-29] MEDS: DOCUSATE 50 MG/5 ML, 10ML UDC NG SCH (09:16)
[2018-03-29] MEDS: FUROSEMIDE 20 MG/2 ML IV SCH ×2 (09:17→17:25)
[2018-03-29] MEDS: FAMOTIDINE 20 MG TABLET PO SCH ×2 (09:17→20:11)
[2018-03-29] MEDS: SERTRALINE 50MG TABLET PO SCH (09:18)
[2018-03-29] MEDS: TAMSULOSIN 0.4 MG CAP.ER.24H PO SCH (09:18)
[2018-03-29] MEDS: metFORMIN 500 MG TABLET PO SCH ×2 (09:19→17:28)
[2018-03-29] MEDS: LACTULOSE 20 GM/30 ML UDC PO PRN (09:21)
[2018-03-29] MEDS: ENOXAPARIN 40 MG/0.4 ML SQ SCH (09:22)
[2018-03-29] MEDS: LIDODERM 5% PATCH TD SCH (09:55)
[2018-03-29] MEDS: INSULIN GLARGINE 100 UNITS/ML, PEN SQ-INSULIN SCH (11:15)
[2018-03-29] MEDS: ACETAMINOPHEN 325 MG TABLET PO PRN ×3 (11:53→20:35)
[2018-03-29] MEDS: GUAIFENESIN 100 MG/5 ML, 10ML UDC PO PRN (19:26)
[2018-03-29] MEDS: ATORVASTATIN 80 MG TABLET PO SCH (20:11)
[2018-03-29] MEDS: NYSTATIN 500,000 UNITS/5 ML UDC PO SCH (20:11)
[2018-03-29] MEDS: CYANOCOBALAMIN 1,000 MCG TABLET PO SCH (20:12)
[2018-03-29] MEDS: DIPHENHYDRAMINE 50 MG CAPSULE PO PRN (20:35)
[2018-03-29] MEDS: hydrOXyzine 10 MG/5 ML ORAL SOL PO PRN (23:38)
[2018-03-30 04:00] VITALS: BP 124/80
[2018-03-30] MEDS: HYDROcodone/APAP 5/325 TABLET PO PRN ×3 (04:02→20:10)
[2018-03-30 04:36] LABS: BASOPHILS # (AUTO) 0.07 x10^3/uL (0-0.1); BASOPHILS % (AUTO) 1 % (0-1); EOSINOPHILS # (AUTO) 0.93 x10^3/uL (0-0.4); EOSINOPHILS % (AUTO) 8 % (1-7); LYMPHOCYTES # (AUTO) 1.97 x10^3/uL (1-3.4); LYMPHOCYTES % (AUTO) 17 % (22-44); MD NO; MEAN CORPUSCULAR HEMOGLOBIN 31.7 pg (27.5-34.5); MEAN CORPUSCULAR HGB CONC 34.6 g/dL (33.2-36.2); MEAN CORPUSCULAR VOLUME 91.8 fL (81-97); MEAN PLATELET VOLUME 7.4 fL (7.4-10.4); MONOCYTES % (AUTO) 9 % (2-9); NEUTROPHILS # (AUTO) 7.67 x10^3/uL (1.8-6.8); NEUTROPHILS % (AUTO) 65 % (42-75); PLATELET COUNT 320 x10^3/uL (130-400); RED BLOOD COUNT 3.43 x10^6/uL (4.38-5.82); RED CELL DISTRIBUTION WIDTH 15.2 % (9.4-14.8)
[2018-03-30 04:45] LABS: CHLORIDE 95 mmol/L (98-107)
[2018-03-30 04:48] LABS: ANION GAP 7 mmol/L (5-15); CALCIUM 8.6 mg/dL (8.5-10.1); CREATININE 0.52 mg/dL (0.7-1.3)
[2018-03-30] MEDS: INSULIN LISPRO 100 UNITS/ML, PEN SQ-INSULIN SCH ×4 (05:08→23:13)
[2018-03-30] MEDS: ASPIRIN 81 MG TABLET CHEW PO SCH ×2 (06:25→10:45)
[2018-03-30] MEDS: NYSTATIN 500,000 UNITS/5 ML UDC PO SCH ×4 (06:39→20:11)
[2018-03-30] MEDS: ENOXAPARIN 40 MG/0.4 ML SQ SCH (07:03)
[2018-03-30] MEDS: TAMSULOSIN 0.4 MG CAP.ER.24H PO SCH (07:55)
[2018-03-30] MEDS: DOCUSATE 50 MG/5 ML, 10ML UDC NG SCH (07:55)
[2018-03-30] MEDS: FAMOTIDINE 20 MG TABLET PO SCH ×2 (07:55→20:10)
[2018-03-30] MEDS: SERTRALINE 50MG TABLET PO SCH (07:55)
[2018-03-30] MEDS: FUROSEMIDE 20 MG/2 ML IV SCH ×2 (07:55→15:56)
[2018-03-30] MEDS: CLOPIDOGREL 75 MG TABLET PO SCH ×2 (07:56→10:45)
[2018-03-30] MEDS: LIDODERM 5% PATCH TD SCH (07:56)
[2018-03-30] MEDS: metFORMIN 500 MG TABLET PO SCH ×2 (08:15→15:56)
[2018-03-30] MEDS: LACTULOSE 20 GM/30 ML UDC PO PRN (10:43)
[2018-03-30] MEDS: INSULIN GLARGINE 100 UNITS/ML, PEN SQ-INSULIN SCH (10:51)
[2018-03-30] MEDS: ACETAMINOPHEN 325 MG TABLET PO PRN (12:01)
[2018-03-30] MEDS: DIPHENHYDRAMINE 50 MG CAPSULE PO PRN (20:10)
[2018-03-30] MEDS: ATORVASTATIN 80 MG TABLET PO SCH (20:10)
[2018-03-30] MEDS: CYANOCOBALAMIN 1,000 MCG TABLET PO SCH (20:11)
[2018-03-30] MEDS ORDERED: ALBUTEROL SULFATE 2.5 MG/3 ML IPPB PRN (20:30)
[2018-03-31] MEDS: HYDROcodone/APAP 5/325 TABLET PO PRN ×5 (01:04→19:46)
[2018-03-31 04:00] VITALS: BP 124/78
[2018-03-31 05:10] LABS: BASOPHILS # (AUTO) 0.06 x10^3/uL (0-0.1); BASOPHILS % (AUTO) 0 % (0-1); EOSINOPHILS # (AUTO) 0.98 x10^3/uL (0-0.4); EOSINOPHILS % (AUTO) 7 % (1-7); LYMPHOCYTES # (AUTO) 1.89 x10^3/uL (1-3.4); LYMPHOCYTES % (AUTO) 13 % (22-44); MD NO; MEAN CORPUSCULAR HEMOGLOBIN 32.6 pg (27.5-34.5); MEAN CORPUSCULAR HGB CONC 35.4 g/dL (33.2-36.2); MEAN CORPUSCULAR VOLUME 92.2 fL (81-97); MEAN PLATELET VOLUME 7.9 fL (7.4-10.4); MONOCYTES # (AUTO) 1.13 x10^3/uL (0.2-0.8); MONOCYTES % (AUTO) 8 % (2-9); NEUTROPHILS # (AUTO) 10.04 x10^3/uL (1.8-6.8); NEUTROPHILS % (AUTO) 71 % (42-75); PLATELET COUNT 343 x10^3/uL (130-400); RED BLOOD COUNT 3.54 x10^6/uL (4.38-5.82); RED CELL DISTRIBUTION WIDTH 15.8 % (9.4-14.8)
[2018-03-31 05:19] LABS: ANION GAP 6 mmol/L (5-15); CALCIUM 8.8 mg/dL (8.5-10.1); CHLORIDE 93 mmol/L (98-107)
[2018-03-31 05:20] LABS: CREATININE 0.59 mg/dL (0.7-1.3)
[2018-03-31] MEDS: INSULIN LISPRO 100 UNITS/ML, PEN SQ-INSULIN SCH ×4 (05:46→23:11)
[2018-03-31] MEDS: NYSTATIN 500,000 UNITS/5 ML UDC PO SCH ×4 (06:16→19:46)
[2018-03-31] MEDS ORDERED: MAGNESIUM SULFATE PMX 2GM/50ML 50 ML IV ONE (07:30)
[2018-03-31] MEDS: TAMSULOSIN 0.4 MG CAP.ER.24H PO SCH (09:12)
[2018-03-31] MEDS: FUROSEMIDE 20 MG/2 ML IV SCH ×2 (09:12→17:37)
[2018-03-31] MEDS: CLOPIDOGREL 75 MG TABLET PO SCH (09:13)
[2018-03-31] MEDS: FAMOTIDINE 20 MG TABLET PO SCH ×2 (09:13→19:46)
[2018-03-31] MEDS: SERTRALINE 50MG TABLET PO SCH (09:13)
[2018-03-31] MEDS: metFORMIN 500 MG TABLET PO SCH ×2 (09:13→17:36)
[2018-03-31] MEDS: DOCUSATE 50 MG/5 ML, 10ML UDC NG SCH (09:13)
[2018-03-31] MEDS: ENOXAPARIN 40 MG/0.4 ML SQ SCH (09:14)
[2018-03-31] MEDS: LACTULOSE 20 GM/30 ML UDC PO PRN (09:14)
[2018-03-31] MEDS: BISACODYL 10 MG SUPP PR PRN (10:27)
[2018-03-31] MEDS: LIDODERM 5% PATCH TD SCH (10:27)
[2018-03-31] MEDS: INSULIN GLARGINE 100 UNITS/ML, PEN SQ-INSULIN SCH (13:07)
[2018-03-31] MEDS: GUAIFENESIN 100 MG/5 ML, 10ML UDC PO PRN (17:30)
[2018-03-31] MEDS: ATORVASTATIN 80 MG TABLET PO SCH (19:45)
[2018-03-31] MEDS: CYANOCOBALAMIN 1,000 MCG TABLET PO SCH (19:46)
[2018-04-01] MEDS: DIPHENHYDRAMINE 50 MG CAPSULE PO PRN (00:52)
[2018-04-01] MEDS: HYDROcodone/APAP 5/325 TABLET PO PRN ×2 (00:57→05:16)
[2018-04-01 04:09] VITALS: BP 139/84
[2018-04-01 04:51] LABS: BASOPHILS # (AUTO) 0.05 x10^3/uL (0-0.1); BASOPHILS % (AUTO) 0 % (0-1); EOSINOPHILS # (AUTO) 0.78 x10^3/uL (0-0.4); EOSINOPHILS % (AUTO) 6 % (1-7); LYMPHOCYTES # (AUTO) 1.89 x10^3/uL (1-3.4); LYMPHOCYTES % (AUTO) 14 % (22-44); MD NO; MEAN CORPUSCULAR HEMOGLOBIN 32.2 pg (27.5-34.5); MEAN PLATELET VOLUME 7.7 fL (7.4-10.4); MONOCYTES % (AUTO) 8 % (2-9); NEUTROPHILS # (AUTO) 9.48 x10^3/uL (1.8-6.8); NEUTROPHILS % (AUTO) 71 % (42-75); PLATELET COUNT 350 x10^3/uL (130-400); RED BLOOD COUNT 3.66 x10^6/uL (4.38-5.82); RED CELL DISTRIBUTION WIDTH 15.6 % (9.4-14.8)
[2018-04-01 04:55] LABS: ANION GAP 9 mmol/L (5-15); CALCIUM 8.4 mg/dL (8.5-10.1); CHLORIDE 94 mmol/L (98-107); CREATININE 0.61 mg/dL (0.7-1.3)
[2018-04-01] MEDS: INSULIN LISPRO 100 UNITS/ML, PEN SQ-INSULIN SCH (05:00)
[2018-04-01] MEDS: ASPIRIN 81 MG TABLET CHEW PO SCH (05:17)
[2018-04-01] MEDS: NYSTATIN 500,000 UNITS/5 ML UDC PO SCH (05:29)
[2018-04-01] MEDS: DOCUSATE 50 MG/5 ML, 10ML UDC NG SCH (07:37)
[2018-04-01] MEDS: FUROSEMIDE 20 MG/2 ML IV SCH (07:37)
[2018-04-01] MEDS: CLOPIDOGREL 75 MG TABLET PO SCH (07:37)
[2018-04-01] MEDS: SERTRALINE 50MG TABLET PO SCH (07:37)
[2018-04-01] MEDS: TAMSULOSIN 0.4 MG CAP.ER.24H PO SCH (07:37)
[2018-04-01] MEDS: metFORMIN 500 MG TABLET PO SCH (07:37)
[2018-04-01] MEDS: FAMOTIDINE 20 MG TABLET PO SCH (07:38)
[2018-04-01] MEDS: LIDODERM 5% PATCH TD SCH (07:38)
[2018-04-01] MEDS: ENOXAPARIN 40 MG/0.4 ML SQ SCH (07:38)
[2018-04-01] MEDS: GUAIFENESIN 100 MG/5 ML, 10ML UDC PO PRN (07:38)
[2018-04-01] MEDS ORDERED: HYDR10SY15 PO (07:42)
[2018-04-01] MEDS ORDERED: INSU100I11 SQ-INSULIN (07:42)
[2018-04-01] MEDS ORDERED: LACT20SO13 PO (07:42)
[2018-04-01] MEDS ORDERED: LIDO10VI34 ENDO (07:42)
[2018-04-01] MEDS ORDERED: FAMO20TA7 PO (07:42)
[2018-04-01] MEDS ORDERED: CYAN10005 PO (07:42)
[2018-04-01] MEDS ORDERED: HYDR-3240 PO (07:42)
[2018-04-01] MEDS ORDERED: LABE5VIA13 IVPush (07:42)
[2018-04-01] MEDS ORDERED: ATOR-2 PO (07:42)
[2018-04-01] MEDS ORDERED: ASPI-515 PO (07:42)
[2018-04-01] MEDS ORDERED: DIPH50CA PO (07:42)
[2018-04-01] MEDS ORDERED: FURO10VI37 IV (07:42)
[2018-04-01] MEDS ORDERED: ENAL1.2513 IVPush (07:42)
[2018-04-01] MEDS ORDERED: ONDA4VIA8 IVPush (07:42)
[2018-04-01] MEDS ORDERED: SERT50TA5 PO (07:42)
[2018-04-01] MEDS ORDERED: BISA10SU65 PR (07:42)
[2018-04-01] MEDS ORDERED: GUAI100L11 PO (07:42)
[2018-04-01] MEDS ORDERED: METF500T PO (07:42)
[2018-04-01] MEDS ORDERED: FENT50VI IVPush (07:42)
[2018-04-01] MEDS ORDERED: DOCU50LI12 PO (07:42)
[2018-04-01] MEDS ORDERED: ACET325T14 PO (07:42)
[2018-04-01] MEDS ORDERED: HYDR20VI3 IVPush (07:42)
[2018-04-01] MEDS ORDERED: ALBU2.5V IPPB (07:42)
[2018-04-01] MEDS ORDERED: NYST1000 PO (07:42)
[2018-04-01] MEDS ORDERED: LIDO700A20 TD (07:42)
[2018-04-01] MEDS ORDERED: TAMS-11 PO (07:42)
[2018-04-01] MEDS ORDERED: CLOP75TA PO (07:42)
[2018-04-01] MEDS ORDERED: INSU100I13 SQ-INSULIN (07:42)
== END 2018-04-01 09:10 | DRG 4 ==
LOC: ED 10:45 → EDIP 11:25 → 4WST 11:42 → CCU 02-21 17:07
PROVIDERS: ADMIT Internal Medicine; ATTEND Internal Medicine
PROC: 009U3ZX Drainage of Spinal Canal, Percutaneous Approach, Diagnostic (ICD-10-PCS; 2018-02-21)
PROC: B01B1ZZ Fluoroscopy of Spinal Cord using Low Osmolar Contrast (ICD-10-PCS; 2018-02-21)
PROC: 5A1955Z Respiratory Ventilation, Greater than 96 Consecutive Hours (ICD-10-PCS; 2018-02-22)
PROC: 0BH17EZ Insertion of Endotracheal Airway into Trachea, Via Natural or Artificial Opening (ICD-10-PCS; 2018-02-22)
PROC: 0B9F8ZX Drainage of Right Lower Lung Lobe, Via Natural or Artificial Opening Endoscopic, Diagnostic (ICD-10-PCS; principal; 2018-03-03)
PROC: 0B9J8ZX Drainage of Left Lower Lung Lobe, Via Natural or Artificial Opening Endoscopic, Diagnostic (ICD-10-PCS; 2018-03-06)
PROC: 0B113F4 Bypass Trachea to Cutaneous with Tracheostomy Device, Percutaneous Approach (ICD-10-PCS; 2018-03-15)
PROC: 02HV33Z Insertion of Infusion Device into Superior Vena Cava, Percutaneous Approach (ICD-10-PCS; 2018-03-15)
PROC: B548ZZA Ultrasonography of Superior Vena Cava, Guidance (ICD-10-PCS; 2018-03-15)
PROC: 0DH63UZ Insertion of Feeding Device into Stomach, Percutaneous Approach (ICD-10-PCS; 2018-03-17)
PROC: 5A09357 Assistance with Respiratory Ventilation, Less than 24 Consecutive Hours, Continuous Positive Airway Pressure (ICD-10-PCS; 2018-03-17)
DX: A41.9 Sepsis, unspecified organism (principal); E43 Unspecified severe protein-calorie malnutrition; I63.40 Cerebral infarction due to embolism of unspecified cerebral artery; J14 Pneumonia due to Hemophilus influenzae; J96.00 Acute respiratory failure, unspecified whether with hypoxia or hypercapnia; E87.0 Hyperosmolality and hypernatremia; E87.1 Hypo-osmolality and hyponatremia; G61.0 Guillain-Barre syndrome; G81.94 Hemiplegia, unspecified affecting left nondominant side; I38 Endocarditis, valve unspecified; J98.11 Atelectasis; Z99.11 Dependence on respirator [ventilator] status; B37.9 Candidiasis, unspecified; B95.2 Enterococcus as the cause of diseases classified elsewhere; E11.43 Type 2 diabetes mellitus with diabetic autonomic (poly)neuropathy; E11.51 Type 2 diabetes mellitus with diabetic peripheral angiopathy without gangrene; E11.65 Type 2 diabetes mellitus with hyperglycemia; E66.01 Morbid (severe) obesity due to excess calories; E87.70 Fluid overload, unspecified; F28 Other psychotic disorder not due to a substance or known physiological condition; F32.9 Major depressive disorder, single episode, unspecified; G35 Multiple sclerosis; G70.00 Myasthenia gravis without (acute) exacerbation; I10 Essential (primary) hypertension; I16.0 Hypertensive urgency; I48.0 Paroxysmal atrial fibrillation; I51.3 Intracardiac thrombosis, not elsewhere classified; J34.1 Cyst and mucocele of nose and nasal sinus; J40 Bronchitis, not specified as acute or chronic; N30.90 Cystitis, unspecified without hematuria; K59.00 Constipation, unspecified; M25.78 Osteophyte, vertebrae; R13.14 Dysphagia, pharyngoesophageal phase; R29.6 Repeated falls; T38.0X5A Adverse effect of glucocorticoids and synthetic analogues, initial encounter; W18.30XA Fall on same level, unspecified, initial encounter; Z79.899 Other long term (current) drug therapy; Z51.5 Encounter for palliative care; Z86.73 Personal history of transient ischemic attack (TIA), and cerebral infarction without residual deficits; Z93.1 Gastrostomy status; Z87.891 Personal history of nicotine dependence; K20.9 Esophagitis, unspecified; K25.9 Gastric ulcer, unspecified as acute or chronic, without hemorrhage or perforation; Z68.36 Body mass index [BMI] 36.0-36.9, adult
CPT/HCPCS: 36415; 36600; 74230; 77001; 82040; 82042; 86592; 99285; J3490; J7613; S0028; 31624; 36569; 62270; 70450; 70496; 70498; 70544; 70549; 70551; 70553; 71045; 71250; 72156; 72157; 72158; 74176; 76937; 80048; 80053; 80061; 80202; 81001; 81003; 82306; 82533; 82550; 82607; 82784; 82803; 82945; 82962; 83036; 83735; 83873; 84100; 84157; 84443; 84478; 85014; 85018; 85025; 85520; 85610; 85730; 86255; 86617; 86850; 86900; 87040; 87070; 87077; 87081; 87086; 87186; 87205; 87252; 87324; 87491; 87532; 87591; 89051; 93005; 93306; 93308; 93312; 93325; 93880; 94002; 94003; 94150; 94640; 94667; 94668; A9585; B4087; G0378; J0690; J0696; J1561; J1644; J1650; J1940; J2020; J2248; J2250; J2405; J2543; J2704; J2930; J2997; J3010; J3370; J3475; Q9967; 92523-GN; C1751; J0330; J0360; J1815; J2270; J7030; J7040; J7050; P9035; Q0177